=== PATIENT | female | born 1935 | race Asian ===

== ENCOUNTER 2021-01-06 01:03 | Outpatient (CLI) | payer MEDICARE, OTHER | END 2021-01-06 01:04 | disposition EMS.NT | LOC: EMS 01:03 | DX: Z03.89 Encounter for observation for other suspected diseases and conditions ruled out (principal) ==

== ENCOUNTER 2022-03-21 14:19 | Outpatient (CLI) | payer MEDICARE, OTHER | END 2022-03-21 14:20 | disposition critical access hospital (66) | LOC: EMS 14:19 | DX: R06.09 Other forms of dyspnea (principal); R06.01 Orthopnea; I50.9 Heart failure, unspecified | CPT/HCPCS: A0425; A0429 ==

== ENCOUNTER 2022-03-21 14:42 | Inpatient (IN) | payer MEDICARE, OTHER ==
[2022-03-21] MEDS ORDERED: IPRATROPIUM/ALBUTEROL 3 ML NEB INH STA (14:55)
--- NOTE | 2022-03-21 15:07 | ED Physician Documentation ---
History of Present Illness - Stated complaint Stated Complaint: DIFFICULTY BREATHING - Additonal information Additional information: 86-year-old female presents to the emergency department for evaluation of 10 days [place] and shortness of air. Her daughter reports that she herself had caught the "crud" and then her mom got sick. Reportedly the patient was seen at [facility] about a week ago On 12 March and was started on Lasix due to extensive lower extremity edema and suspicion that she had congestive heart failure. The patient is in the process of being referred to cardiology and reportedly has an echo scheduled for April 01. Patient has significant bilateral lower extremity edema which she reports has improved over the last 10 days due to the Lasix. Her daughter reports she is lost about 25 pounds. Patient denies chest pain. Patient was seen in this emergency department in August and diagnosed with atrial fibrillation as well as thrombocytopenia. She had good rate control with metoprolol. She did follow-up with her primary doctors at [facility] but no echocardiogram was ordered or completed reportedly Patient has a history of morbid obesity and atrial fibrillation. She is not anticoagulated. She does have a history of thrombocytopenia. Meds: Metoprolol 25 daily, Lasix 60 mg daily, celecoxib Review of Systems Constitutional: denies: Fever, Chills Eyes: reports: Reviewed and negative Cardiac: reports: Pedal edema. denies: Chest pain / pressure, Palpitations Respiratory: reports: Dyspnea, Cough GI: reports: Reviewed and negative : reports: Reviewed and negative Skin: reports: Reviewed and negative PD PAST MEDICAL HISTORY - Past Surgical History Past Surgical History: No - Present Medications Home Medications: Ambulatory Orders Medication Instructions Recorded Confirmed Metoprolol Succinate [Toprol Xl] 25 mg PO DAILY #30 tablet 08/28/21 03/21/22 Celecoxib [Celebrex] 50 mg PO DAILY 03/21/22 03/21/22 Furosemide [Lasix] 60 mg PO DAILY 03/21/22 03/21/22 - Allergies Allergies/Adverse Reactions: Allergies Allergy/AdvReac Type Severity Reaction Status Date / Time codeine Allergy Emesis Verified 03/21/22 15:12 Opioids - Morphine Analogues Allergy Emesis Verified 03/21/22 15:12 Opioids-Meperidine and Allergy Emesis Verified 03/21/22 15:12 Related Opioids-Methadone and Related Allergy Emesis Verified 03/21/22 15:12 gabapentin AdvReac Unknown Verified 03/21/22 15:12 - Social History Does the pt drink ETOH?: Yes PD ED PE NORMAL - General General: Alert and oriented X 3, Well developed/nourished (Morbidly obese). No: No acute distress (Patient denies chest pain) - HEENT HEENT: Pharynx benign. No: Moist mucous membranes (Dry mucous membranes) - Neck Neck: Supple, no meningeal sign, No adenopathy - Cardiac Cardiac: No murmur (Large 3/6 systolic murmur), Strong equal pulses. No: RRR (Irregular) - Respiratory Respiratory: No: No respiratory distress (Dyspneic. Speaking in 4-5 word sentences only. Room air sats are 88%. Saturations rise to 97% with 2 L nasal cannula. Diffuse expiratory wheeze.) - Abdomen Abdomen: Normal bowel sounds, Soft - Back Back: No CVA TTP, No spinal TTP - Derm Derm: Normal color, Warm and dry, No rash - Extremities Extremities: No deformity, No tenderness to palpate, Normal ROM s pain. No: No edema (Severe anasarca bilateral lower extremities) - Neuro Neuro: Alert and oriented X 3, cattery operator 2-12 intact Eye Opening: Spontaneous Motor: Obeys Commands Verbal: Oriented GCS Score: 15 Results - Vitals Vitals: Vital Signs - 24 hr 03/21/22 03/21/22 03/21/22 15:08 15:09 15:12 Heart Rate 86 88 Respiratory 20 16 Rate Blood Pressure 179/105 H O2 Saturation 97 88 L 99 If not protocol 2 : Oxygen Flow, liters/minute 03/21/22 03/21/22 15:15 15:28 Heart Rate Respiratory Rate Blood Pressure O2 Saturation 89 L 97 If not protocol 2 : Oxygen Flow, liters/minute Oxygen O2 Source Nasal cannula - EKG (time done) 1538 Rate: Rate (enter#) (84) Rhythm: Atrial fibrillation Intervals: No: Prolonged QT QRS: Low voltage Ischemia: Normal ST segments Compare to prior EKG: Unchanged from prior EKG Computer interpretation: Agree with computer - Labs Labs: Laboratory Tests 03/21/22 03/21/22 03/21/22 14:58 14:58 14:58 WBC 4.6 L RBC 4.09 L Hgb 12.8 Hct 42.2 MCV 103.2 H MCH 31.3 H MCHC 30.3 L RDW 15.5 H Plt Count 17 L* Neut # (Auto) Not Reportable Lymph # (Auto) Not Reportable [place] # (Auto) Not Reportable Eos # (Auto) Not Reportable Baso # (Auto) Not Reportable Absolute Nucleated RBC Not Reportable Total Counted 100 Band Neuts % (Manual) 0 Reactive Lymphs % (Man) 5 Abnorm Lymph % (Manual) 0 Nucleated RBC % Not Reportable Neutrophils # (Manual) 3.7 Lymphocytes # (Manual) 0.6 L Monocytes # (Manual) 0.3 Eosinophils # (Manual) 0.0 Basophils # (Manual) 0.0 Nucleated RBCs 1 Differential Comment MANUAL DIFFERENTIAL Platelet Estimate DECREASED (<130,000) Platelet Morphology 1+ GIANT PLATELETS RBC Morph Micro Appear 1+ MACROCYTOSIS Sodium 139 Potassium 3.7 Chloride 99 L Carbon Dioxide 31 Anion Gap 9.0 BUN 27 H Creatinine 1.2 H Estimated GFR (MDRD) 43 L Glucose 116 H Calcium 10.3 Total Bilirubin 2.1 H AST 40 ALT 20 Alkaline Phosphatase 71 Troponin I High Sens B-Natriuretic Peptide 350 H Total Protein 7.4 Albumin 4.2 Globulin 3.2 Albumin/Globulin Ratio 1.3 Lipase 47 03/21/22 16:06 WBC RBC Hgb Hct MCV MCH MCHC RDW Plt Count Neut # (Auto) Lymph # (Auto) [place] # (Auto) Eos # (Auto) Baso # (Auto) Absolute Nucleated RBC Total Counted Band Neuts % (Manual) Reactive Lymphs % (Man) Abnorm Lymph % (Manual) Nucleated RBC % Neutrophils # (Manual) Lymphocytes # (Manual) Monocytes # (Manual) Eosinophils # (Manual) Basophils # (Manual) Nucleated RBCs Differential Comment Platelet Estimate Platelet Morphology RBC Morph Micro Appear Sodium Potassium Chloride Carbon Dioxide Anion Gap BUN Creatinine Estimated GFR (MDRD) Glucose Calcium Total Bilirubin AST ALT Alkaline Phosphatase Troponin I High Sens 36.9 H* B-Natriuretic Peptide Total Protein Albumin Globulin Albumin/Globulin Ratio Lipase - Rads (name of study) cxr Radiology: Final report received (Moderate cardiomegaly and generalized interstitial prominence. CHF is suspected. Mild opacities are seen at lung bases which may represent atelectasis or mild early infiltrate) PD Medical Decision Making - ED course Complexity details: reviewed old records, reviewed results, re-evaluated patient, considered differential, d/w patient ED course: 86-year-old female presents to the emergency department for 10 days of dyspnea orthopnea. She does have a history of atrial fibrillation diagnosed in August. At that time she was thrombocytopenic and because of this no anticoagulation was started. She has had good rate control with metoprolol long-acting 25 mg daily. However she never followed through with echocardiogram or cardiology. She began having increasing dyspnea cough and shortness of air about 10 days ago. She did go to [facility] and they had suspicion that she had developed heart failure so she was started on Lasix daily. She is currently scheduled to have an echocardiogram completed on April 01 but due to worsening dyspnea and now hypoxia she was brought into the emergency department today. On room air her saturations are 87 to 88%. She is speaking in 4 word sentences. She does have diffuse wheeze. We did place her on 2 L nasal cannula with resultant rise in saturations to 97%. Chest x-ray shows cardiomegaly with suspected CHF. There may be some faint bibasilar infiltrates in the lower lung prajapati. Because of this I elected to start her on azithromycin and ceftriaxone for a possible community-acquired pneumonia in the setting of CHF. I did obtain a CBC that showed no leukocytosis. She has no anemia. She does have persistent and marked thrombocytopenia with a platelet count of 17,000. However this is essentially unchanged from her August value of 29,000. Her electrolytes were evaluated. She does have a mild BUN and creatinine elevation likely reflecting current Lasix administration. Her BNP was mildly elevated at 350 but given her morbid obesity this is likely falsely low. EKG today showed rate controlled atrial fibrillation without findings suggesting ischemia. Unfortunately there are no beds available for admission here at [facility] therefore she will board in the emergency department till bed is available. She was administered 80 mg of Lasix IV here in the ER and will be started on 60 mg orally daily. She will also remain on the azithromycin and ceftriaxone. I did briefly discussed this case with our daytime hospitalist Dr. Medina. She requested a single troponin. If elevated she would like another one just to trend. She is aware of this patient and tomorrow when a bed becomes available if the patient has not significantly improved she will be formally admitted. 1700: I been notified that a bed has become available on the wards and the patient will be transferred to floor bed #[id number]. I have spoke with Dr. Medina and further care to be dictated by the inpatient hospitalist team. Patient and her daughter are also aware. Departure - Departure Disposition: ED Place in Observation Clinical Impression: Hypoxia, Thrombocytopenia Acute exacerbation of CHF (congestive heart failure) Qualifiers: Heart failure type: unspecified Qualified Code(s): I50.9 - Heart failure, unspecified Pneumonia Qualifiers: Pneumonia type: due to unspecified organism Laterality: bilateral Lung location: lower lobe of lung Qualified Code(s): J18.9 - Pneumonia, unspecified organism Condition: Serious
[2022-03-21 15:08] LABS: BASOPHILS % (AUTO) 0.2 %; EOSINOPHILS % (AUTO) 0.2 %; HCT - HEMATOCRIT 42.2 % (37.0-47.0); HGB - HEMOGLOBIN 12.8 g/dL (12.0-16.0); LYMPHOCYTES % (AUTO) 13.4 %; MEAN CORPUSCULAR HEMOGLOBIN 31.3 pg (27.0-31.0); MEAN CORPUSCULAR HGB CONC 30.3 g/dL (32.0-36.0); MEAN CORPUSCULAR VOLUME 103.2 fL (81.0-99.0); MONOCYTES % (AUTO) 8.6 %; NEUTROPHILS % (AUTO) 76.9 %; RED BLOOD COUNT 4.09 10^6/uL (4.20-5.40); RED CELL DISTRIBUTION WIDTH 15.5 % (12.0-15.0); WHITE BLOOD COUNT 4.6 x10^3/uL (4.8-10.8)
--- NOTE | 2022-03-21 15:09 | XRAY Report ---
PROCEDURE: Chest 1 View X-Ray INDICATIONS: Chest Pain TECHNIQUE: One view of the chest was acquired. COMPARISON: 09/27/2021 FINDINGS: Surgical changes and devices: None. Lungs and pleura: Lung volumes can be seen, with mild opacities at the lung bases. More generalized interstitial prominence can be seen. Mediastinum: Mediastinal contours appear normal. Heart size is mildly enlarged. Bones and chest wall: No suspicious bony lesions. Age-appropriate degenerative changes are seen. Overlying soft tissues appear unremarkable. IMPRESSION: Moderate cardiomegaly with generalized interstitial prominence. CHF is suspected. Mild opacities are seen at the lung bases, which may represent atelectasis or mild/early infiltrate. Reviewed by: John Hines MD on 03/21/2022 2:08 PM [facility] Approved by: John Hines MD on 03/21/2022 2:08 PM [facility] Station ID: [id number]
[2022-03-21 15:13] LABS: PLT - PLATELET COUNT 17 10^3/uL (130-450)
[2022-03-21 15:14] LABS: ABNORMAL LYMPHS % (MANUAL) 0 %; BAND NEUTROPHILS % (MANUAL) 0 %
[2022-03-21 15:18] LABS: ALBUMIN 4.2 g/dL (3.2-5.5); ALBUMIN/GLOBULIN RATIO 1.3 (1.0-2.2); BILIRUBIN,TOTAL 2.1 mg/dL (0.2-1.0); CALCIUM 10.3 mg/dL (8.5-10.3); CREATININE 1.2 mg/dL (0.4-1.0); POTASSIUM 3.7 mmol/L (3.5-5.0); TOTAL PROTEIN 7.4 g/dL (6.7-8.2)
[2022-03-21 15:31] LABS: LYMPHOCYTES # (MANUAL) 0.6 10^3/uL (1.5-3.5); LYMPHOCYTES % (MANUAL) 9 %; MONOCYTES # (MANUAL) 0.3 10^3/uL (0.0-1.0); NEUTROPHILS # (MANUAL) 3.7 10^3/uL (1.5-6.6); NUCLEATED RBC (MANUAL) 1 %; RBC MORPHOLOGY (MULTIPLE) 1+ MACROCYTOSIS (NORMAL); REACTIVE LYMPHS % (MANUAL) 5 %
[2022-03-21 15:32] LABS: PLATELET ESTIMATE, MANUAL DECREASED (<130,000) (NORMAL); PLATELET MORPHOLOGY 1+ GIANT PLATELETS (NORMAL)
[2022-03-21 15:33] LABS: DIFFERENTIAL COMMENT MANUAL DIFFERENTIAL
[2022-03-21] MEDS ORDERED: FUROSEMIDE 40 MG/4 ML VIAL IVP STA (15:39)
[2022-03-21] MEDS ORDERED: cefTRIAXone 1 GM VIAL IVP STA (15:51)
[2022-03-21] MEDS ORDERED: AZITHROMYCIN INJ 500 MG in SODIUM CHLORIDE 0.9% 250 ML IV STA (15:51)
[2022-03-21] MEDS ORDERED: ACETAMINOPHEN 325 MG TABLET PO PRN (16:52)
[2022-03-21] MEDS ORDERED: ONDANSETRON 4 MG/2 ML VIAL IVP PRN (16:52)
[2022-03-21] MEDS: SODIUM CHLORIDE FLUSH 0.9% 10 ML SYRINGE IVP SCH (17:00)
--- NOTE | 2022-03-21 17:13 | HISTORY & PHYSICAL EXAMINATION ---
Chief Complaint - Chief Complaint Chief Complaint: Shortness of breath History of Present Illness - Admitted From Admitted From:: ED - History Obtained From History obtained from: ED provider and the patient - History of Present Illness HPI Comment/Other: This is an 86-year-old white female with possibly a history of hypertension. She was sent to the ER in August 2021 when at a clinic visit she was found to be in new onset of A. fib. She was asymptomatic with this, had no palpitations, chest pain, dyspnea or edema. She was started on metoprolol. Labs then showed she had thrombocytopenia with a platelet count of 29, therefore no anticoagulants or antiplatelets were started. She was told to get follow-up and that she needs an echo. She apparently did not have an echo ordered. Approximately 10 days ago she started to develop a URI along with her daughter with whom she lives. She had a cough, shortness of breath, no appetite and malaise. Because of the shortness of breath she went to her provider who felt that she was in heart failure because of shortness of breath and leg edema. She was started on Lasix 60 mg daily. With this she has had good diuresis and lost 25 pounds over the 6 days. Her shortness of breath however, has not improved and she presented to the ER today. She was desaturating on room air with an O2 sat of 88%, which improved on 2 L supplemental O2 via n.c. Wheezing was heard and she was ordered to get a nebulizer treatment. Chest x-ray showed volume overload and possible early bilateral infiltrates. She received a dose of Lasix 80 mg IV and was ordered to get Zithromax and Ceftriaxone. Her troponin is 36, BNP 350, and BUN/creat 27/1.2 which are elevated compared to August 2021, when it was 22/1.0. Her WBC is 4.6 and her entire respiratory panel is still pending. Given her new need for supplemental oxygen, the ED provider reached out to the Hospitalist team and we discussed the need to give further treatment for this la dy. She will be placed in Observation for management of a possible CHF exacerbation and possible pneumonia, causing hypoxia. History - Past Medical History Cardiovascular: reports: Congestive heart failure (presumed) Respiratory: reports: None Neuro: reports: None Endocrine/Autoimmune: reports: None GI: reports: None VALVE MAKER: reports: None : reports: None HEENT: reports: Chronic vision loss Psych: reports: None Musculoskeletal: reports: None Derm: reports: None - Past Surgical History General: reports: Appendectomy - Family & Social History Family History: Mother: , Father: Family History Comment/Other: No diseases run in the family Living arrangement: At home Living Situation: With family Social History Notes: She lives with her and her daughter. She quit smoking 40 years ago. She drinks 1 alcoholic drink about 5-6 times per week. - Substance History Use: Uses substance without health or social issues: NONE - POLST Patient has POLST: No Meds/Allgy - Home Medications Home Medications: Ambulatory Orders Medication Instructions Recorded Confirmed Metoprolol Succinate [Toprol Xl] 25 mg PO DAILY #30 tablet 08/28/21 03/21/22 Celecoxib [Celebrex] 50 mg PO DAILY 03/21/22 03/21/22 Furosemide [Lasix] 60 mg PO DAILY 03/21/22 03/21/22 - Allergies Allergies/Adverse Reactions: Allergies Allergy/AdvReac Type Severity Reaction Status Date / Time codeine Allergy Emesis Verified 03/21/22 15:12 Opioids - Morphine Analogues Allergy Emesis Verified 03/21/22 15:12 Opioids-Meperidine and Allergy Emesis Verified 03/21/22 15:12 Related Opioids-Methadone and Related Allergy Emesis Verified 03/21/22 15:12 gabapentin AdvReac Unknown Verified 03/21/22 15:12 Review of Systems - Constitutional Constitutional: reports: Poor appetite, Weight loss - Cardiovascular Cariovascular: reports: Edema - Respiratory Respiratory: reports: Cough, Sputum production, SOB at rest, SOB with exertion - All Other Systems All Other Systems: reports: Reviewed and negative Exam - Vital Signs Vital Signs: Vital Signs x48h Pulse Resp BP Pulse Ox O2 Flow Rate 03/21/22 15:28 97 2 03/21/22 15:15 89 L 03/21/22 15:12 88 16 99 2 03/21/22 15:09 88 L 03/21/22 15:08 86 20 179/105 H 97 - Physical Exam General Appearance: positive: No acute distress, Alert Eyes Bilateral: positive: Other (Eyes have exophthalmous.) ENT: positive: ENT inspection nml, No signs of dehydration Neck: positive: Nml inspection (O), Other (Cannot evaluate JVP due to morbid obesity) Respiratory: positive: No respiratory distress (wearing O2 per n.c.), Other (diminished (or distant) breath sounds) Cardiovascular: positive: No murmur (Distant heartb sounds due to morbid obesity, large breasts) Abdomen: positive: Non-tender, Other (Obese with a pannus) Extremities: positive: Other (1+ edema to thighs, very obese legs. Multiple very large ecchymoses of both upper extremitoes) Conclusion/Plan - Problem List (1) Acute respiratory failure with hypoxia Conclusion/Plan: She has documented saturation of 80% on room air, this improved with supplemental oxygen Plan: We will treat the underlying presumed causes which may be CHF and PNA Cont suppl O2, target sats are 90%. (2) CHF (congestive heart failure) Conclusion/Plan: She has not had the Echo to establish what her LVEF is. Perhaps untreated HTN or RVR put her into CHF Plan: Will continue with IV BID diuretics Follow I's and O's, daily weights Follow BMP and magnesium Continue with her beta-lanie Adjust meds for BP control air sampling and monitoring Obtain an Echo Low-salt diet (3) Pneumonia Conclusion/Plan: Chest x-ray shows infiltrates and her clinical presentation is that of upper respiratory infection for several weeks making pneumonia a strong possibility Plan: Will obtain sputum culture and send off if she makes sputum We will continue with empiric antibiotics of p.o. Zithromax and IV ceftriaxone Qualifiers: Pneumonia type: due to unspecified organism Laterality: bilateral Lung location: lower lobe of lung Qualified Code(s): J18.9 - Pneumonia, unspecified organism (4) Malignant essential hypertension Conclusion/Plan: Her first 2 blood pressures were 140-170/90-100 but the BPs latest were 211/133. Possibly poorly controlled HTN put her into CHF. Plan: Start IV diuretics twice daily. Continue with her home dose of metoprolol. Will also add hydralazine and nitrates, not QING, while the creat is not normal. Low-salt diet (5) Afib Conclusion/Plan: Her ER August 2021 visit showed A. fib and this current ER visits EKG shows A. fib. Unknown if she has had any work-up for this since the August ER visit, but it sounds like no referral to Cardiology was made yet. An Echo has not been done yet, as far as we can tell. Plan: Check TSH to rule out hyperthyroidism Check troponins to rule out coronary ischemia Placed on telemetry to rule out tachycardia induced cardiomyopathy and RVR Continue with her home dose of beta-lanie She cannot get antiplatelet or anticoagulant agents because of her thrombocytopenia (6) ATIF (acute kidney injury) Conclusion/Plan: Etiology of this may be prerenal azotemia from 2 weeks of diuretic use, or this may be cardiorenal syndrome from high venous pressure given her CHF, or it may be intrinsic renal disease given her malignant hypertension. Plan: Avoid nephrotoxins Will continue using Lasix but closely monitor what the creatinine does (7) Thrombocytopenia Conclusion/Plan: This was documented about 6 months ago, platelet count of 29. She was told to get follow-up for this but did not go to the appointment in [place].. Platelet count today is 17. She has very prominent ecchymoses of both arms. Plan: She cannot get antiplatelet or anticoagulants since she is at risk of bleeding with such low platelets. Follow CBC daily, if plt <10, would order a plt transfusion (8) Morbid obesity with BMI of 40.0-44.9, adult Conclusion/Plan: As per Hx. Plan: Will need nutrition consult. - Lab Results Fish Bones: 03/21/22 14:58 03/21/22 14:58 - Diagnostic Imaging Results Diagnostic Imaging Results: positive: Final report reviewed
[2022-03-21] MEDS ORDERED: hydrALAZINE INJ 20 MG/ML VIAL IVP STA (17:45)
[2022-03-21 20:09] LABS: B. PARAPERTUSSIS- RESP PCR PAN NOT DETECTED; B. PERTUSSIS- RESP PCR PANEL NOT DETECTED; C. PNEUMONIAE- RESP PCR PANEL NOT DETECTED; CORONAVIRUS 229E-RESP PCR NOT DETECTED; CORONAVIRUS HKU1-RESP PCR NOT DETECTED; CORONAVIRUS NL63-RESP PCR NOT DETECTED; CORONAVIRUS OC43-RESP PCR NOT DETECTED; HUMAN METAPNEUMOVIRUS NOT DETECTED; INFLUENZA A H1 2009- RESP PCR DETECTED; INFLUENZA B - RESP PCR PANEL NOT DETECTED; M. PNEUMONIAE- RESP PCR PANEL NOT DETECTED; PARAINFLUENZA VIRUS 1 NOT DETECTED; PARAINFLUENZA VIRUS 2 NOT DETECTED; PARAINFLUENZA VIRUS 3 NOT DETECTED; PARAINFLUENZA VIRUS 4 NOT DETECTED; RHINOVIRUS/ENTEROVIRUS NOT DETECTED; RSV- RESP PCR PANEL NOT DETECTED; SARS-CoV-2 -RESP PCR PANEL NOT DETECTED
[2022-03-21] MEDS: hydrALAZINE 25 MG TABLET PO SCH (22:56)
[2022-03-22] MEDS: SODIUM CHLORIDE FLUSH 0.9% 10 ML SYRINGE IVP SCH ×3 (05:18→16:15)
[2022-03-22] MEDS: hydrALAZINE 25 MG TABLET PO SCH (05:18)
[2022-03-22] MEDS: FUROSEMIDE 40 MG/4 ML VIAL IVP SCH ×2 (05:18→14:43)
[2022-03-22 06:58] LABS: BASOPHILS % (AUTO) 0.2 %; EOSINOPHILS % (AUTO) 0.4 %; HCT - HEMATOCRIT 39.7 % (37.0-47.0); HGB - HEMOGLOBIN 12.3 g/dL (12.0-16.0); LYMPHOCYTES # (AUTO) 0.7 10^3/uL (1.5-3.5); LYMPHOCYTES % (AUTO) 12.2 %; MEAN CORPUSCULAR HEMOGLOBIN 31.7 pg (27.0-31.0); MEAN CORPUSCULAR VOLUME 102.3 fL (81.0-99.0); MONOCYTES # (AUTO) 0.4 10^3/uL (0.0-1.0); MONOCYTES % (AUTO) 6.7 %; NEUTROPHILS # (AUTO) 4.3 10^3/uL (1.5-6.6); NEUTROPHILS % (AUTO) 79.9 %; RED BLOOD COUNT 3.88 10^6/uL (4.20-5.40); RED CELL DISTRIBUTION WIDTH 15.6 % (12.0-15.0); WHITE BLOOD COUNT 5.4 x10^3/uL (4.8-10.8)
[2022-03-22 07:03] LABS: PLT - PLATELET COUNT 25 10^3/uL (130-450); SLIDE REVIEW? Indicated
[2022-03-22 07:07] LABS: CALCIUM 10.1 mg/dL (8.5-10.3); CREATININE 1.1 mg/dL (0.4-1.0); POTASSIUM 3.5 mmol/L (3.5-5.0)
[2022-03-22 07:48] LABS: PLATELET ESTIMATE, MANUAL DECREASED (<130,000) (NORMAL); PLATELET MORPHOLOGY NORMAL APPEARANCE (NORMAL); RBC MORPHOLOGY (MULTIPLE) NORMAL APPEARANCE (NORMAL)
[2022-03-22] MEDS: ISOSORBIDE MONONITRATE ER 30 MG TABLET PO SCH (08:11)
[2022-03-22] MEDS: METOPROLOL SUCCINATE 25 MG TABLET PO SCH (08:11)
[2022-03-22] MEDS ORDERED: FUROSEMIDE 20 MG TABLET PO SCH (09:00)
[2022-03-22] MEDS ORDERED: cefTRIAXone 1 GM VIAL IVP SCH (09:00)
[2022-03-22] MEDS ORDERED: AZITHROMYCIN 250 MG TABLET PO SCH (09:00)
--- NOTE | 2022-03-22 12:26 | PROVIDER PROGRESS NOTE ---
Assessment/Plan - Problem List (1) Acute respiratory failure with hypoxia Assessment/Plan: Despite treatment, she had a documented saturation of 87% on room air today. She is tachypneic when being moved in bed. Has not gotten OOB yet. Plan: Admit to Inpt status due to continued hypoxia We will treat the underlying presumed causes which appear to be CHF and PNA Cont suppl O2, target sats are 90%. (2) CHF (congestive heart failure) Conclusion/Plan: She was advised to see Cardiology when she came into ER in [facility], in August 2021. She never went to see a [facility] and also has not had the Echo that was advised then. Echo has just recently been set up to be done 04/01/22. Thus we don not know her LVEF yet. She has been on metoprolol as her only med, for 6 mos. When in ER yesterday, her BP was as high as 230/130. Perhaps untreated HTN or RVR of Afib, or the stress of this pneumonia, put her into CHF. Troponin ruled her out for NH. Plan: Continue telemetry monitoring as an Inpt Will continue with IV BID diuretics Follow I's and O's, daily weights Follow BMP and magnesium We added meds for BP control Continue with her beta-lanie. Meds will be adjusted based on her LVEF Obtain an Echo (today is Mon, and we have no Echo service except -). Low-salt diet (3) Pneumonia Conclusion/Plan: Chest x-ray shows infiltrates and her clinical presentation is that of upper respiratory infection for 10 days, making pneumonia a strong possibility as causing the hypoxia Plan: Will obtain sputum culture and send off if she makes sputum We will continue with empiric antibiotics of p.o. Zithromax and IV ceftriaxone Qualifiers: Pneumonia type: due to unspecified organism Laterality: bilateral Lung location: lower lobe of lung Qualified Code(s): J18.9 - Pneumonia, unspecified organism (4) Influenza A infection Plan: start Tamiflu. Resp isolation. (5) Malignant essential hypertension Conclusion/Plan: In the ER yesterday, her first 2 blood pressures were 140-170/90-100, then 211/133. Possibly poorly controlled HTN put her into CHF. Plan: Continue IV diuretics twice daily. Continue with her home dose of metoprolol. Will also add hydralazine and nitrates. BP was exessively low at 103 systolic today, so will decrease the Hydralazine dose. Low-salt diet (6) Afib Conclusion/Plan: Her ER August 2021 visit showed A. fib and this current ER visits EKG shows A. fib. It does not appear that she has had any work-up for this since the August ER visit. The referral to Cardiology was made but she has not gone yet. An Echo is scheduuled for 04/01/22. We checked TSH to rule out hyperthyroidism>> TSH is low normal at 0.91. Troponins ruled her out for NH. Plan: Continue on telemetry to rule out tachycardia induced cardiomyopathy from RVR Continue with her home dose of beta-lanie She cannot get antiplatelet or anticoagulant agents because of her thrombocytopenia and Hx of excessive bruising (7) ATIF (acute kidney injury) Conclusion/Plan: Etiology of this appears to be cardiorenal syndrome, from high venous pressure, given her CHF, or it may be intrinsic renal disease given her malignant hypertension. With iv diuretics, her creat has improved. Plan: Avoid nephrotoxins Will continue using Lasix Follow BMP daily (8) Thrombocytopenia Conclusion/Plan: This was documented about 6 months ago, platelet count of 29. She was told to get follow-up for this but did not go to the appointment in [place].. Platelet count at admission was 17. She has very prominent ecchymoses of both arms. The daughter, in her room today, described that the patient has had bruising for all her life and other family members have bruising. The pt has never been to a [facility] even though it was recommended, when the platelets were documented low at the August 2021 ER visit. Apparently there was a referral made to Hematology but the patient did not go to the appointment. Plan: She cannot get antiplatelet or anticoagulants since she is at risk of bleeding with such low platelets. Follow CBC daily, if plt <10, would order a plt transfusion (9) Morbid obesity with BMI of 40.0-44.9, adult Conclusion/Plan: As per Hx. Plan: Will need nutrition consult. Will order OOB to chair for all meals Will start PT and OT rehab soon, to prevent deconditioning (10) Non-compliance with medical management Conclusion/Plan: During my visit in her room today, the entire family was in the room: Her , 2 daughters and 1 other person. It was revealed that this patient has not seen a doctor in decades. The visit 10 days ago where she was started on Lasix was preceded by an ER visit 6 months ago and before that she only had visits for shingles about 2 years ago. The daughters described that the patient has had bruising for all her life and other family members have bruising. She has never been to a [facility] even though it was recommended when the platelets were documented low, at the August 2021 ER visit. Apparently there was a referral made to Hematology but the patient did not go to the appointment. We also knew yesterday that she did not go to the Cardiology appointment, advised in 2021, until this month, which was 6 months after that A. fib was found. The daughters tell me that the reason she does not go to medical providers is because she thinks they will "just tell her that she is fat". Thus she has not been on prescription medications of any kind for decades, until August of this year, when Metoprolol was started and then 10 days ago, when Lasix was started. Plan: We will request a social work consult regarding her fear of seeing doctors. - Current Meds Current Meds: Current Medications Generic Name Dose Route Start Last Admin Trade Name Althea PRN Reason Stop Dose Admin Furosemide 40 mg 03/22/22 06:00 03/22/22 05:18 Furosemide 40 Mg/4 Ml Vial IVP 40 mg BIDDIURETIC CUONG Administration Isosorbide Mononitrate 30 mg 03/22/22 09:00 03/22/22 08:11 Isosorbide Mononitrate Er 30 Mg Tablet PO 30 mg DAILY CUONG Administration Metoprolol Succinate 25 mg 03/22/22 09:00 03/22/22 08:11 Metoprolol Succinate 25 Mg Tablet PO 25 mg DAILY CUONG Administration Sodium Chloride 10 ml 03/21/22 17:00 03/22/22 11:32 Sodium Chloride Flush 0.9% 10 Ml Syringe IVP 10 ml 0100,0900,1700 CUONG Administration - Lab Result Fish Bone Diagrams: 03/22/22 06:43 03/22/22 06:43 - Additional Planning My Orders: My Active Orders 03/21/22 Dinner DIET [Low Sodium Diet] [DIET] 03/21/22 16:52 Oxygen Therapy [RC] Q12H Telemetry (24 Hour) [RC] Q4HR Vital Signs [RC] Q4HR Acetaminophen [Tylenol] 650 mg PO Q4HR PRN Ondansetron Inj [Zofran Inj] 4 mg IVP Q6HR PRN Sodium Chloride Flush 0.9% [Normal Saline Flush 0.9%] 10 ml IVP PRN PRN 03/21/22 16:53 Activity Orders [RC] Q2HR IO [RC] IOSHIFT Initiate Bowel Care Protocol [RC] .protocol Initiate Line Care Protocol [RC] QSHIFT Initiate Personal Care Protoco [RC] .protocol Code Status [OTHERS] Routine Condition of Patient [OTHERS] Routine DVT Prophylaxis [OTHERS] Routine 03/21/22 16:54 Daily Weight [RC] 0600 IV Insert [RC] .ONCE 03/21/22 16:55 Initiate Line Care Protocol [RC] QSHIFT SCDs [RC] QSHIFT 03/21/22 17:00 Sodium Chloride Flush 0.9% [Normal Saline Flush 0.9%] 10 ml IVP 0100,0900,1700 03/22/22 06:00 FUROSEMIDE INJ 40mg VIAL [LASIX INJ 40 mg VIAL] 40 mg IVP BIDDIURETIC 03/22/22 09:00 Isosorbide Mononitrate ER [Imdur] 30 mg PO DAILY Metoprolol Succinate [Toprol Xl] 25 mg PO DAILY 03/22/22 11:16 Miscellaenous Nursing Order [RC] QSHIFT 03/22/22 12:09 Admit [Admit \\ Transfer \\ Status] [RC] .ONCE 03/22/22 14:00 hydrALAZINE [Apresoline] 10 mg PO TID 03/23/22 07:00 Echo Transthoracic Complete [ECHO] Routine Subjective - Subjective Patient Reports: Feeling Better, Other ( and 2 daughters are in the room and tell me that she sounds better than over the last 10 days at home, when she was coughing, short of breath at rest, , had no appetite, & had vomiting) Objective Vital Signs: Vital Signs - 24 hr 03/21/22 03/21/22 03/21/22 15:08 15:09 15:12 Temperature Heart Rate 86 88 Heart Rate [ Brachial] Respiratory 20 16 Rate Blood Pressure 179/105 H Blood Pressure [Right Brachial artery] O2 Saturation 97 88 L 99 If not protocol 2 : Oxygen Flow, liters/minute 03/21/22 03/21/22 03/21/22 15:15 15:28 17:00 Temperature Heart Rate 90 Heart Rate [ Brachial] Respiratory 20 Rate Blood Pressure 211/131 H Blood Pressure [Right Brachial artery] O2 Saturation 89 L 97 95 If not protocol 2 2 : Oxygen Flow, liters/minute 03/21/22 03/21/22 03/21/22 17:30 18:08 19:25 Temperature Heart Rate 87 Heart Rate [ 84 Brachial] Respiratory 26 H 16 Rate Blood Pressure 184/147 H Blood Pressure 156/96 H [Right Brachial artery] O2 Saturation 98 98 If not protocol 2 2 2 : Oxygen Flow, liters/minute 03/21/22 03/21/22 03/21/22 19:32 19:37 21:00 Temperature 37.1 C Heart Rate Heart Rate [ 79 81 91 Brachial] Respiratory 16 16 24 Rate Blood Pressure Blood Pressure 149/87 H 149/84 H 141/73 H [Right Brachial artery] O2 Saturation 100 98 98 If not protocol 2 2 2 : Oxygen Flow, liters/minute 03/21/22 03/21/22 03/22/22 22:58 23:43 05:09 Temperature 36.8 C 36.8 C Heart Rate Heart Rate [ 83 97 91 Brachial] Respiratory 16 16 16 Rate Blood Pressure Blood Pressure 145/88 H 126/64 127/65 [Right Brachial artery] O2 Saturation 93 16 L 95 If not protocol 2 2 2 : Oxygen Flow, liters/minute 03/22/22 03/22/22 03/22/22 07:35 11:00 11:11 Temperature 36.8 C 36.6 C Heart Rate Heart Rate [ 92 86 Brachial] Respiratory 26 H 24 19 Rate Blood Pressure Blood Pressure 133/54 H 103/51 L [Right Brachial artery] O2 Saturation 95 87 L 93 If not protocol 2 2 : Oxygen Flow, liters/minute Oxygen O2 Source Nasal cannula Oxygen Flow Rate 2 I&O (Last 24 Hrs): Intake and Output Totals x24h 03/20/22 03/21/22 03/22/22 23:59 23:59 23:59 Intake Total 136 Output Total 1005 300 Balance -1005 -164 General: Alert, Oriented x3 HEENT: Mucous membr. moist/pink, Other (cheeks are flushed) Neck: Other (Obese and cannot evaluate JVP) Neuro: Alert, Non Focal Cardiovascular: Regular rate (Distant heart sounds due to morbid obesity and large breasts) Respiratory: Wheezes, Rales (Scattered wheezes, bilateral basal rales) Abdomen: Soft, No tenderness, Other (Obese with pannus) Extremities: Other (1+ silver to thighs) - Results Results: Laboratory Results WBC 5.4 x10^3/uL (4.8-10.8) 03/22/22 06:43 RBC 3.88 10^6/uL (4.20-5.40) L 03/22/22 06:43 Hgb 12.3 g/dL (12.0-16.0) 03/22/22 06:43 Hct 39.7 % (37.0-47.0) 03/22/22 06:43 MCV 102.3 fL (81.0-99.0) H 03/22/22 06:43 MCH 31.7 pg (27.0-31.0) H 03/22/22 06:43 MCHC 31.0 g/dL (32.0-36.0) L 03/22/22 06:43 RDW 15.6 % (12.0-15.0) H 03/22/22 06:43 Plt Count 25 10^3/uL (130-450) L* 03/22/22 06:43 MPV TNP 03/22/22 06:43 Neut # (Auto) 4.3 10^3/uL (1.5-6.6) 03/22/22 06:43 Lymph # (Auto) 0.7 10^3/uL (1.5-3.5) L 03/22/22 06:43 [place] # (Auto) 0.4 10^3/uL (0.0-1.0) 03/22/22 06:43 Eos # (Auto) 0.0 10^3/uL (0.0-0.7) 03/22/22 06:43 Baso # (Auto) 0.0 10^3/uL (0.0-0.1) 03/22/22 06:43 Absolute Nucleated RBC 0.00 x10^3/uL 03/22/22 06:43 Total Counted 100 03/21/22 14:58 Band Neuts % (Manual) 0 % (0-10) 03/21/22 14:58 Reactive Lymphs % (Man) 5 % 03/21/22 14:58 Abnorm Lymph % (Manual) 0 % 03/21/22 14:58 Nucleated RBC % 0.0 /100WBC 03/22/22 06:43 Neutrophils # (Manual) 3.7 10^3/uL (1.5-6.6) 03/21/22 14:58 Lymphocytes # (Manual) 0.6 10^3/uL (1.5-3.5) L 03/21/22 14:58 Monocytes # (Manual) 0.3 10^3/uL (0.0-1.0) 03/21/22 14:58 Eosinophils # (Manual) 0.0 10^3/uL (0-0.7) 03/21/22 14:58 Basophils # (Manual) 0.0 10^3/uL (0-0.1) 03/21/22 14:58 Nucleated RBCs 1 % 03/21/22 14:58 Differential Comment MANUAL DIFFERENTIAL 03/21/22 14:58 Manual Slide Review Indicated 03/22/22 06:43 Platelet Estimate DECREASED (<130,000) (NORMAL) 03/22/22 06:43 Platelet Morphology NORMAL APPEARANCE (NORMAL) 03/22/22 06:43 RBC Morph Micro Appear NORMAL APPEARANCE (NORMAL) 03/22/22 06:43 Sodium 140 mmol/L (135-145) 03/22/22 06:43 Potassium 3.5 mmol/L (3.5-5.0) 03/22/22 06:43 Chloride 98 mmol/L (101-111) L 03/22/22 06:43 Carbon Dioxide 33 mmol/L (21-32) H 03/22/22 06:43 Anion Gap 9.0 (6-13) 03/22/22 06:43 BUN 23 mg/dL (6-20) H 03/22/22 06:43 Creatinine 1.1 mg/dL (0.4-1.0) H 03/22/22 06:43 Estimated GFR (MDRD) 47 (>89) L 03/22/22 06:43 Glucose 96 mg/dL (70-100) 03/22/22 06:43 Calcium 10.1 mg/dL (8.5-10.3) 03/22/22 06:43 Magnesium 2.0 mg/dL (1.7-2.8) 03/22/22 06:43 Total Bilirubin 2.1 mg/dL (0.2-1.0) H 03/21/22 14:58 AST 40 IU/L (10-42) 03/21/22 14:58 ALT 20 IU/L (10-60) 03/21/22 14:58 Alkaline Phosphatase 71 IU/L (42-121) 03/21/22 14:58 Troponin I High Sens 36.0 ng/L (2.3-14.8) H* 03/21/22 19:15 B-Natriuretic Peptide 226 pg/mL (5-100) H 03/22/22 06:43 Total Protein 7.4 g/dL (6.7-8.2) 03/21/22 14:58 Albumin 4.2 g/dL (3.2-5.5) 03/21/22 14:58 Globulin 3.2 g/dL (2.1-4.2) 03/21/22 14:58 Albumin/Globulin Ratio 1.3 (1.0-2.2) 03/21/22 14:58 Lipase 47 U/L (22-51) 03/21/22 14:58 TSH 0.91 uIU/mL (0.34-5.60) 03/22/22 06:43 Nasal Adenovirus (PCR) NOT DETECTED 03/21/22 15:13 Nasal B. parapertussis DNA (PCR) NOT DETECTED 03/21/22 15:13 Nasal Coronavir 229E PCR NOT DETECTED 03/21/22 15:13 Nasal Coronavir HKU1 PCR NOT DETECTED 03/21/22 15:13 Nasal Coronavir NL63 PCR NOT DETECTED 03/21/22 15:13 Nasal Coronavir OC43 PCR NOT DETECTED 03/21/22 15:13 Nasal Enterovir/Rhinovir PCR NOT DETECTED 03/21/22 15:13 Nasal Influ A H1 2009 PCR DETECTED A 03/21/22 15:13 Nasal Influenza B PCR NOT DETECTED 03/21/22 15:13 Nasal Parainfluen 1 PCR NOT DETECTED 03/21/22 15:13 Nasal Parainfluen 2 PCR NOT DETECTED 03/21/22 15:13 Nasal Parainfluen 3 PCR NOT DETECTED 03/21/22 15:13 Nasal Parainfluen 4 PCR NOT DETECTED 03/21/22 15:13 Nasal RSV (PCR) NOT DETECTED 03/21/22 15:13 Nasal B.pertussis DNA PCR NOT DETECTED 03/21/22 15:13 Nasal C.pneumoniae (PCR) NOT DETECTED 03/21/22 15:13 Dalton Human Metapneumo PCR NOT DETECTED 03/21/22 15:13 Nasal M.pneumoniae (PCR) NOT DETECTED 03/21/22 15:13 Nasal SARS-CoV-2 (PCR) NOT DETECTED 03/21/22 15:13
[2022-03-22] MEDS ORDERED: OSELTAMIVIR 75 MG CAPSULE PO ONE (14:00)
[2022-03-22] MEDS: hydrALAZINE 10 MG TABLET PO SCH ×2 (14:43→21:43)
[2022-03-23] MEDS: SODIUM CHLORIDE FLUSH 0.9% 10 ML SYRINGE IVP SCH ×3 (00:40→17:31)
[2022-03-23] MEDS: hydrALAZINE 10 MG TABLET PO SCH ×3 (07:02→21:20)
[2022-03-23] MEDS: FUROSEMIDE 40 MG/4 ML VIAL IVP SCH ×2 (07:02→14:16)
[2022-03-23] MEDS: OSELTAMIVIR 30 MG CAPSULE PO SCH ×2 (08:53→21:20)
[2022-03-23] MEDS: ISOSORBIDE MONONITRATE ER 30 MG TABLET PO SCH (08:53)
[2022-03-23] MEDS: AZITHROMYCIN 250 MG TABLET PO SCH (08:53)
[2022-03-23] MEDS: METOPROLOL SUCCINATE 25 MG TABLET PO SCH (08:53)
[2022-03-23] MEDS: cefTRIAXone 1 GM in SODIUM CHLORIDE 0.9% MINIBAG 100 ML IV SCH (08:53)
--- NOTE | 2022-03-23 15:57 | PROVIDER PROGRESS NOTE ---
Assessment/Plan - Problem List (1) Acute respiratory failure with hypoxia Assessment/Plan: She is still tachypneic with movement, was ordered to be OOB for all meals. Plan: We will treat the underlying presumed causes which appear to be diastolic CHF and PNA Cont suppl O2, target sats are 90%. (2) Pneumonia Conclusion/Plan: Chest x-ray shows infiltrates and her clinical presentation is that of upper respiratory infection for 10 days, making pneumonia a strong possibility as causing the hypoxia Plan: Will obtain sputum culture and send off if she makes sputum We will continue with empiric antibiotics of p.o. Zithromax and IV ceftriaxone Qualifiers: Pneumonia type: due to unspecified organism Laterality: bilateral Lung location: lower lobe of lung Qualified Code(s): J18.9 - Pneumonia, unspecified organism (3) Cor Pulmonale Impression: Her complete Echo with Doppler was done today and this shows normal LV size with preserved systolic function EF of 65% therefore likely diastolic heart failure but she has a very large RV with preserved RV contractility. The cause of the cor pulmonale could be the current pneumonia on top of (very likely) obesity hypoventilation syndrome. Plan: The Echo report will be given to the family so that she can take it to her cripple worker appointment which is in about 2 weeks Continue with careful diuresis (4) Acute on chronic diastolic heart failure (congestive heart failure) Conclusion/Plan: She was advised to see Cardiology when she came into ER in [facility], in August 2021. She never went to see a Tile Designer and also has not had the Echo that was advised then. Her complete Echo with Doppler was done today and this shows normal LV size with preserved systolic function EF of 65% therefore likely diastolic heart failure She has been on metoprolol as her only med, for 6 mos. When in ER at admission, her BP was as high as 230/130. Perhaps untreated HTN or RVR from Afib, or the stress of this pneumonia, put her into CHF. Troponin ruled her out for [place]. Plan: Continue telemetry monitoring Will continue with IV BID diuretics Follow I's and O's, daily weights Follow BMP and magnesium We added meds for BP control Continue with her beta-lanie. Low-salt diet (5) Influenza A infection Plan: We started her on Tamiflu. Resp isolation. (6) Malignant essential hypertension Conclusion/Plan: In the ER, her first 2 blood pressures were 140-170/90-100, then 211/133. Possibly poorly controlled HTN put her into CHF. Plan: Continue IV diuretics twice daily. Continue with her home dose of metoprolol. We also started hydralazine and nitrates. BP was exessively low at 103 systolic yesterday, so the Hydralazine dose was decreased. Low-salt diet (7) Afib Conclusion/Plan: Her ER August 2021 visit showed new onset A. fib and this current ER visits shows she is in A. fib. It does not appear that she has had any work-up for this since the August ER visit. The referral to Cardiology was made but she had not gone yet. An Echo was scheduled for 04/01/22. We checked TSH to rule out hyperthyroidism>> TSH is low normal at 0.91. Troponins ruled her out for [place]. Plan: Continue on telemetry to rule out tachycardia (Afib with RVR) Continue with her home dose of beta-lanie She cannot get antiplatelet or anticoagulant agents because of her thrombocytopenia and Hx of excessive bruising lifelong. (8) Cardiorenal syndrome Conclusion/Plan: Etiology of elevated BUN/creat appears to be cardiorenal syndrome, fcaused by high venous pressure, given her CHF, or it may be intrinsic renal disease given her malignant hypertension. With iv diuretics, her creat has improved. Plan: Avoid nephrotoxins Will continue using Lasix Follow BMP daily (9) Thrombocytopenia Conclusion/Plan: This was documented about 6 months ago, with a platelet count of 29. She was told to get follow-up for this but did not go to the appointment in [place].. Platelet count at admission now was 17. She has very large and extensive ecchymoses of both arms. Yesterday the nancy zepeda, in her room, described that the patient has had bruising for all her life and other family members have bruising. She has not had any lab work is decades, per the daughters, because she does not see a doctor regularly. The pt has never been to a Fairground Operator even though that was recommended when the platelets were documented low at the August 2021 ER visit. Apparently there was a referral made to Hematology but the patient did not go to the appointment. Plan: She cannot get antiplatelet or anticoagulants since she is at risk of bleeding with such low platelets. Follow CBC daily, if plt <10, would order a plt transfusion (10) Morbid obesity with BMI of 40.0-44.9, adult Conclusion/Plan: As per Hx. Plan: Will need nutrition consult. We ordered OOB to chair for all meals Will order PT and OT rehab to prevent deconditioning (11) Non-compliance with medical management Conclusion/Plan: During my visit in her room on 03/22, the entire family was in the room: Her , 2 daughters and 1 other person. It was revealed that this patient has not seen a doctor in decades. The visit 10 days ago where she was started on Lasix was preceded by an ER visit 6 months ago and before that she only had visits for shingles about 2 years ago. The daughters described that the patient has had bruising for all her life and other family members have bruising. She has never been to a Fairground Operator even though it was recommended when the platelets were documented low, at the August 2021 ER visit. Apparently there was a referral made to Hematology but the patient did not go to the appointment. We also learned yesterday that she did not go to the Cardiology appointment, advised in August 2021, until this month, which was 6 months after that A. fib was found. The daughters tell me that the reason she does not go to medical providers is because she thinks they will "just tell her that she is fat". Thus she has not been on prescription medications of any kind for decades, until August of this year, when Metoprolol was started and then 10 days ago, when Lasix was started. Plan: Will consider a social work consult - Current Meds Current Meds: Current Medications Generic Name Dose Route Start Last Admin Trade Name Althea PRN Reason Stop Dose Admin Azithromycin 250 mg 03/23/22 09:00 03/23/22 08:53 Azithromycin 250 Mg Tablet PO 03/25/22 09:01 250 mg DAILY CUONG Administration Furosemide 40 mg 03/22/22 06:00 03/23/22 14:16 Furosemide 40 Mg/4 Ml Vial IVP 40 mg BIDDIURETIC CUONG Administration Hydralazine HCl 10 mg 03/22/22 14:00 03/23/22 14:17 Hydralazine 10 Mg Tablet PO 10 mg TID CUONG Administration Ceftriaxone Sodium 1 gm/ 100 mls @ 200 mls/hr 03/23/22 09:00 03/23/22 09:25 Sodium Chloride IV 03/25/22 09:29 Infused DAILY CUONG Infusion Isosorbide Mononitrate 30 mg 03/22/22 09:00 03/23/22 08:53 Isosorbide Mononitrate Er 30 Mg Tablet PO 30 mg DAILY CUONG Administration Metoprolol Succinate 25 mg 03/22/22 09:00 03/23/22 08:53 Metoprolol Succinate 25 Mg Tablet PO 25 mg DAILY CUONG Administration Oseltamivir Phosphate 30 mg 03/23/22 09:00 03/23/22 08:53 Oseltamivir 30 Mg Capsule PO 30 mg BID CUONG Administration Sodium Chloride 10 ml 03/21/22 17:00 03/23/22 12:45 Sodium Chloride Flush 0.9% 10 Ml Syringe IVP 10 ml 0100,0900,1700 CUONG Administration - Lab Result Fish Bone Diagrams: 03/24/22 04:48 03/24/22 04:48 - Additional Planning My Orders: My Active Orders 03/22/22 15:13 Telemetry- [RC] Q4HR 03/23/22 Evaluate and Treat OT [OT] Routine Evaluate and Treat PT [PT] Routine 03/23/22 09:00 Azithromycin [Zithromax] 250 mg PO DAILY Oseltamivir [Tamiflu] 30 mg PO BID cefTRIAXone [Rocephin] 1 gm Sodium Chloride 0.9% Minibag [Normal Saline 0.9% Minibag] 100 ml IV DAILY 03/24/22 05:00 BMP - BASIC METABOLIC PANEL [CHEM] DAILYLAB CBC - COMP BLD CT W/AUTO DIFF [HEME] DAILYLAB 03/24/22 09:00 Celecoxib [CeleBREX] 50 mg PO DAILY Subjective - Subjective Patient Reports: Feeling Better (Less SOB, but is still on suppl O2 and is minimally active) Objective Vital Signs: Vital Signs - 24 hr 03/22/22 03/22/22 03/22/22 16:05 19:15 21:00 Temperature 37.3 C 36.5 C Heart Rate [ 93 97 Brachial] Respiratory 20 Rate Blood Pressure 104/55 L 104/53 L [Right Brachial artery] O2 Saturation 95 94 If not protocol 2 2 2 : Oxygen Flow, liters/minute 03/22/22 03/23/22 03/23/22 23:34 04:57 07:30 Temperature 37.0 C 36.6 C 36.9 C Heart Rate [ 85 93 109 H Brachial] Respiratory 20 20 20 Rate Blood Pressure 118/64 130/82 H 117/91 H [Right Brachial artery] O2 Saturation 95 97 94 If not protocol 2 2 2 : Oxygen Flow, liters/minute 03/23/22 03/23/22 03/23/22 09:35 13:00 14:19 Temperature 36.2 C L Heart Rate [ 85 Brachial] Respiratory 18 Rate Blood Pressure 117/66 [Right Brachial artery] O2 Saturation 93 If not protocol 2 2 : Oxygen Flow, liters/minute Oxygen O2 Source Nasal cannula Oxygen Flow Rate 2 I&O (Last 24 Hrs): Intake and Output Totals x24h 03/21/22 03/22/22 03/23/22 23:59 23:59 23:59 Intake Total 250 1116 830 Output Total 1005 600 200 Balance -755 516 630 General: Alert, Oriented x3 HEENT: Mucous membr. moist/pink Neck: Other (Cannot evaluate JVP due to morbid obesity) Neuro: Alert, Non Focal Cardiovascular: No murmurs (Very distant heart sounds due to large breasts and morbid obesity) Respiratory: No respiratory distress, Breath sounds nml (Distant breath sounds due to morbid obesity and pendulous breasts) Abdomen: Other (Obese with pannus) Extremities: No clubbing, Other (Trace to 1+ edema to her thighs) - Results Results: Laboratory Results WBC 5.4 x10^3/uL (4.8-10.8) 03/22/22 06:43 RBC 3.88 10^6/uL (4.20-5.40) L 03/22/22 06:43 Hgb 12.3 g/dL (12.0-16.0) 03/22/22 06:43 Hct 39.7 % (37.0-47.0) 03/22/22 06:43 MCV 102.3 fL (81.0-99.0) H 03/22/22 06:43 MCH 31.7 pg (27.0-31.0) H 03/22/22 06:43 MCHC 31.0 g/dL (32.0-36.0) L 03/22/22 06:43 RDW 15.6 % (12.0-15.0) H 03/22/22 06:43 Plt Count 25 10^3/uL (130-450) L* 03/22/22 06:43 MPV TNP 03/22/22 06:43 Neut # (Auto) 4.3 10^3/uL (1.5-6.6) 03/22/22 06:43 Lymph # (Auto) 0.7 10^3/uL (1.5-3.5) L 03/22/22 06:43 [place] # (Auto) 0.4 10^3/uL (0.0-1.0) 03/22/22 06:43 Eos # (Auto) 0.0 10^3/uL (0.0-0.7) 03/22/22 06:43 Baso # (Auto) 0.0 10^3/uL (0.0-0.1) 03/22/22 06:43 Absolute Nucleated RBC 0.00 x10^3/uL 03/22/22 06:43 Total Counted 100 03/21/22 14:58 Band Neuts % (Manual) 0 % (0-10) 03/21/22 14:58 Reactive Lymphs % (Man) 5 % 03/21/22 14:58 Abnorm Lymph % (Manual) 0 % 03/21/22 14:58 Nucleated RBC % 0.0 /100WBC 03/22/22 06:43 Neutrophils # (Manual) 3.7 10^3/uL (1.5-6.6) 03/21/22 14:58 Lymphocytes # (Manual) 0.6 10^3/uL (1.5-3.5) L 03/21/22 14:58 Monocytes # (Manual) 0.3 10^3/uL (0.0-1.0) 03/21/22 14:58 Eosinophils # (Manual) 0.0 10^3/uL (0-0.7) 03/21/22 14:58 Basophils # (Manual) 0.0 10^3/uL (0-0.1) 03/21/22 14:58 Nucleated RBCs 1 % 03/21/22 14:58 Differential Comment MANUAL DIFFERENTIAL 03/21/22 14:58 Manual Slide Review Indicated 03/22/22 06:43 Platelet Estimate DECREASED (<130,000) (NORMAL) 03/22/22 06:43 Platelet Morphology NORMAL APPEARANCE (NORMAL) 03/22/22 06:43 RBC Morph Micro Appear NORMAL APPEARANCE (NORMAL) 03/22/22 06:43 Sodium 140 mmol/L (135-145) 03/22/22 06:43 Potassium 3.5 mmol/L (3.5-5.0) 03/22/22 06:43 Chloride 98 mmol/L (101-111) L 03/22/22 06:43 Carbon Dioxide 33 mmol/L (21-32) H 03/22/22 06:43 Anion Gap 9.0 (6-13) 03/22/22 06:43 BUN 23 mg/dL (6-20) H 03/22/22 06:43 Creatinine 1.1 mg/dL (0.4-1.0) H 03/22/22 06:43 Estimated GFR (MDRD) 47 (>89) L 03/22/22 06:43 Glucose 96 mg/dL (70-100) 03/22/22 06:43 Calcium 10.1 mg/dL (8.5-10.3) 03/22/22 06:43 Magnesium 2.0 mg/dL (1.7-2.8) 03/22/22 06:43 Total Bilirubin 2.1 mg/dL (0.2-1.0) H 03/21/22 14:58 AST 40 IU/L (10-42) 03/21/22 14:58 ALT 20 IU/L (10-60) 03/21/22 14:58 Alkaline Phosphatase 71 IU/L (42-121) 03/21/22 14:58 Troponin I High Sens 36.0 ng/L (2.3-14.8) H* 03/21/22 19:15 B-Natriuretic Peptide 226 pg/mL (5-100) H 03/22/22 06:43 Total Protein 7.4 g/dL (6.7-8.2) 03/21/22 14:58 Albumin 4.2 g/dL (3.2-5.5) 03/21/22 14:58 Globulin 3.2 g/dL (2.1-4.2) 03/21/22 14:58 Albumin/Globulin Ratio 1.3 (1.0-2.2) 03/21/22 14:58 Lipase 47 U/L (22-51) 03/21/22 14:58 TSH 0.91 uIU/mL (0.34-5.60) 03/22/22 06:43 Nasal Adenovirus (PCR) NOT DETECTED 03/21/22 15:13 Nasal B. parapertussis DNA (PCR) NOT DETECTED 03/21/22 15:13 Nasal Coronavir 229E PCR NOT DETECTED 03/21/22 15:13 Nasal Coronavir HKU1 PCR NOT DETECTED 03/21/22 15:13 Nasal Coronavir NL63 PCR NOT DETECTED 03/21/22 15:13 Nasal Coronavir OC43 PCR NOT DETECTED 03/21/22 15:13 Nasal Enterovir/Rhinovir PCR NOT DETECTED 03/21/22 15:13 Nasal Influ A H1 2009 PCR DETECTED A 03/21/22 15:13 Nasal Influenza B PCR NOT DETECTED 03/21/22 15:13 Nasal Parainfluen 1 PCR NOT DETECTED 03/21/22 15:13 Nasal Parainfluen 2 PCR NOT DETECTED 03/21/22 15:13 Nasal Parainfluen 3 PCR NOT DETECTED 03/21/22 15:13 Nasal Parainfluen 4 PCR NOT DETECTED 03/21/22 15:13 Nasal RSV (PCR) NOT DETECTED 03/21/22 15:13 Nasal B.pertussis DNA PCR NOT DETECTED 03/21/22 15:13 Nasal C.pneumoniae (PCR) NOT DETECTED 03/21/22 15:13 [place] Human Metapneumo PCR NOT DETECTED 03/21/22 15:13 Nasal M.pneumoniae (PCR) NOT DETECTED 03/21/22 15:13 Nasal SARS-CoV-2 (PCR) NOT DETECTED 03/21/22 15:13
[2022-03-24 05:17] LABS: BASOPHILS % (AUTO) 0.2 %; EOSINOPHILS % (AUTO) 4.4 %; HCT - HEMATOCRIT 38.5 % (37.0-47.0); HGB - HEMOGLOBIN 11.9 g/dL (12.0-16.0); LYMPHOCYTES % (AUTO) 10.1 %; MEAN CORPUSCULAR HEMOGLOBIN 31.6 pg (27.0-31.0); MEAN CORPUSCULAR HGB CONC 30.9 g/dL (32.0-36.0); MEAN CORPUSCULAR VOLUME 102.1 fL (81.0-99.0); MONOCYTES % (AUTO) 8.1 %; NEUTROPHILS % (AUTO) 76.7 %; PLT - PLATELET COUNT 44 10^3/uL (130-450); RED BLOOD COUNT 3.77 10^6/uL (4.20-5.40); RED CELL DISTRIBUTION WIDTH 15.3 % (12.0-15.0); WHITE BLOOD COUNT 6.2 x10^3/uL (4.8-10.8)
[2022-03-24 05:24] LABS: CALCIUM 9.8 mg/dL (8.5-10.3); CREATININE 1.2 mg/dL (0.4-1.0); POTASSIUM 3.3 mmol/L (3.5-5.0)
[2022-03-24 05:28] LABS: ABNORMAL LYMPHS % (MANUAL) 0 %; BAND NEUTROPHILS % (MANUAL) 0 %
[2022-03-24 05:37] LABS: EOSINOPHILS # (MANUAL) 0.2 10^3/uL (0-0.7); LYMPHOCYTES # (MANUAL) 0.4 10^3/uL (1.5-3.5); LYMPHOCYTES % (MANUAL) 6 %; MONOCYTES # (MANUAL) 0.6 10^3/uL (0.0-1.0)
[2022-03-24 05:38] LABS: DIFFERENTIAL COMMENT MANUAL DIFFERENTIAL; PLATELET ESTIMATE, MANUAL DECREASED (<130,000) (NORMAL); PLATELET MORPHOLOGY NORMAL APPEARANCE (NORMAL); RBC MORPHOLOGY (MULTIPLE) NORMAL APPEARANCE (NORMAL); WBC MORPHOLOGY (MULTIPLE) NORMAL APPEARANCE (NORMAL)
[2022-03-24] MEDS: FUROSEMIDE 40 MG/4 ML VIAL IVP SCH ×2 (06:08→14:19)
[2022-03-24] MEDS: hydrALAZINE 10 MG TABLET PO SCH ×3 (06:08→21:46)
[2022-03-24] MEDS: SODIUM CHLORIDE FLUSH 0.9% 10 ML SYRINGE IVP PRN ×2 (06:08→14:20)
[2022-03-24] MEDS: ISOSORBIDE MONONITRATE ER 30 MG TABLET PO SCH (08:42)
[2022-03-24] MEDS: AZITHROMYCIN 250 MG TABLET PO SCH (08:42)
[2022-03-24] MEDS: METOPROLOL SUCCINATE 25 MG TABLET PO SCH (08:42)
[2022-03-24] MEDS: cefTRIAXone 1 GM in SODIUM CHLORIDE 0.9% MINIBAG 100 ML IV SCH (08:43)
[2022-03-24] MEDS: SODIUM CHLORIDE FLUSH 0.9% 10 ML SYRINGE IVP SCH ×3 (08:44→18:12)
[2022-03-24] MEDS: OSELTAMIVIR 30 MG CAPSULE PO SCH ×2 (08:53→21:47)
[2022-03-24] MEDS: CELEBREX PO SCH (08:54)
[2022-03-24] MEDS ORDERED: CELECOXIB 100 MG CAPSULE PO SCH (09:00)
[2022-03-24] MEDS: POTASSIUM CHLORIDE 10 MEQ CAPSULE PO SCH (09:53)
--- NOTE | 2022-03-24 18:19 | PROVIDER PROGRESS NOTE ---
Assessment/Plan - Problem List (1) Influenzal pneumonia Assessment/Plan: Chest x-ray showed infiltrates and her clinical presentation was that of upper respiratory infection for 10 days, causing the hypoxia. She has less cough and less SOB today Plan: We are continueing with empiric antibiotics of p.o. Zithromax and IV ceftriaxone Qualifiers: Pneumonia type: due to unspecified organism Laterality: bilateral Lung location: lower lobe of lung Qualified Code(s): J18.9 - Pneumonia, unspecified organism (2) Cor Pulmonale Impression: Her complete Echo with Doppler was done and it showed normal LV size with preserved systolic function EF of 65% therefore likely diastolic heart failure but she has a very large RV with preserved RV contractility. The cause of the cor pulmonale could be the current pneumonia on top of (very likely) obesity hypoventilation syndrome. Plan: The Echo report will be given to the family so that she can take it to her angle bender appointment which is in about 2 weeks Continue with careful diuresis (3) Acute on chronic diastolic heart failure (congestive heart failure) Conclusion/Plan: She was advised to see Cardiology when she came into ER in [facility], in August 2021. She never went to see a Pulp Making Plant Operator and also has not had the Echo that was advised then. Her complete Echo with Doppler was done yesterday 03/23 and it showed normal LV size with preserved systolic function EF of 65% therefore likely diastolic heart failure She has been on metoprolol as her only med, for 6 mos. When in ER at admission, her BP was as high as 230/130. Perhaps untreated HTN or RVR from Afib, or the stress of this pneumonia, put her into CHF. Troponin ruled her out for MO. Plan: Continue telemetry monitoring Lasix iv was x1 today and transitioning to oral daily Lasix planned Follow I's and O's, daily weights Follow BMP and magnesium We added meds for BP control Continue with her beta-lanie. Low-salt diet (4) Influenza A infection Plan: We started her on Tamiflu. Resp isolation. (5) Malignant essential hypertension Conclusion/Plan: In the ER, her first 2 blood pressures were 140-170/90-100, then 211/133. Possibly poorly controlled HTN put her into CHF. Plan: Continue IV diuretics twice daily. Continue with her home dose of metoprolol. We also started hydralazine and nitrates. BP was exessively low at 103 systolic yesterday, so the Hydralazine dose was decreased. Low-salt diet (6) Afib Conclusion/Plan: Her ER August 2021 visit showed new onset A. fib and this current ER visits shows she is in A. fib. It does not appear that she has had any work-up for this since the August ER visit. The referral to Cardiology was made but she had not gone yet. An Echo was scheduled for 04/01/22. We checked TSH to rule out hyperthyroidism>> TSH is low normal at 0.91. Troponins ruled her out for MO. Plan: Continue on telemetry to rule out tachycardia (Afib with RVR) Continue with her home dose of beta-lanie She cannot get antiplatelet or anticoagulant agents because of her thromb ocytopenia and Hx of excessive bruising lifelong. (7) Cardiorenal syndrome Conclusion/Plan: Etiology of elevated BUN/creat appears to be cardiorenal syndrome, fcaused by high venous pressure, given her CHF, or it may be intrinsic renal disease given her malignant hypertension. With iv diuretics, her creat has improved. Plan: Avoid nephrotoxins Will continue using Lasix Follow BMP daily (8) Thrombocytopenia Conclusion/Plan: This was documented about 6 months ago, with a platelet count of 29. She was told to get follow-up for this but did not go to the appointment in [place].. Platelet count at admission now was 17. She has very large and extensive ecchymoses of both arms. Yesterday the daughters, in her room, described that the patient has had bruising for all her life and other family members have bruising. She has not had any lab work is decades, per the daughters, because she does not see a doctor regularly. The pt has never been to a Pie Crimping Machine Operator even though that was recommended when the platelets were documented low at the August 2021 ER visit. Apparently there was a referral made to Hematology but the patient did not go to the appointment. Plan: She cannot get antiplatelet or anticoagulants since she is at risk of bleeding with such low platelets. Follow CBC daily, if plt <10, would order a plt transfusion (9) Morbid obesity with BMI of 45.0-49.9, adult Conclusion/Plan: As per Hx. Her BMI is 49 Plan: She needs continued help with nutrition We ordered PT and OT rehab to start (10) Non-compliance with medical management Conclusion/Plan: During my visit in her room on 03/22, the entire family was in the room: Her , 2 daughters and 1 other person. It was revealed that this patient has not seen a doctor in decades. The visit 10 days ago where she was started on Lasix was preceded by an ER visit 6 months ago and before that she only had visits for shingles about 2 years ago. The daughters described that the patient has had bruising for all her life and other family members have bruising. She has never been to a Pie Crimping Machine Operator even though it was recommended when the p latelets were documented low, at the August 2021 ER visit. Apparently there was a referral made to Hematology but the patient did not go to the appointment. We also learned yesterday that she did not go to the Cardiology appointment, advised in August 2021, until this month, which was 6 months after that A. fib was found. The daughters tell me that the reason she does not go to medical providers is b ecause she thinks they will "just tell her that she is fat". Thus she has not been on prescription medications of any kind for decades, until August of this year, when Metoprolol was started and then 10 days ago, when Lasix was started. Plan: She said today, she can see how important it is to get treatment. (11) Acute respiratory failure with hypoxia Assessment/Plan: Resolved, she is on room air at rest, as of this afternoon She is still tachypneic with movement, walked with PT Plan: Continue to treat the underlying presumed causes which appear to be diastolic CHF and PNA Oximetry walk test planned on the day of discharge - Current Meds Current Meds: Current Medications Generic Name Dose Route Start Last Admin Trade Name Freq PRN Reason Stop Dose Admin Azithromycin 250 mg 03/23/22 09:00 03/24/22 08:42 Azithromycin 250 Mg Tablet PO 03/25/22 09:01 250 mg DAILY CUONG Administration Furosemide 40 mg 03/22/22 06:00 03/24/22 14:19 Furosemide 40 Mg/4 Ml Vial IVP 40 mg BIDDIURETIC CUONG Administration Hydralazine HCl 10 mg 03/22/22 14:00 03/24/22 14:20 Hydralazine 10 Mg Tablet PO 10 mg TID CUONG Administration Ceftriaxone Sodium 1 gm/ 100 mls @ 200 mls/hr 03/23/22 09:00 03/24/22 08:43 Sodium Chloride IV 03/25/22 09:29 200 mls/hr DAILY CUONG Administration Isosorbide Mononitrate 30 mg 03/22/22 09:00 03/24/22 08:42 Isosorbide Mononitrate Er 30 Mg Tablet PO 30 mg DAILY CUONG Administration Metoprolol Succinate 25 mg 03/22/22 09:00 03/24/22 08:42 Metoprolol Succinate 25 Mg Tablet PO 25 mg DAILY CUONG Administration Oseltamivir Phosphate 30 mg 03/23/22 09:00 03/24/22 08:53 Oseltamivir 30 Mg Capsule PO 30 mg BID CUONG Administration Celebrex 50mg 50 each 03/24/22 09:00 03/24/22 08:54 PO Not Given DAILY CUONG Potassium Chloride 20 meq 03/24/22 10:00 03/24/22 09:53 Potassium Chloride 10 Meq Capsule PO 20 meq DAILYWM CUONG Administration Sodium Chloride 10 ml 03/21/22 16:52 03/24/22 14:20 Sodium Chloride Flush 0.9% 10 Ml Syringe IVP 10 ml PRN PRN Administration NEEDED PER PROVIDER ORDERS Sodium Chloride 10 ml 03/21/22 17:00 03/24/22 18:12 Sodium Chloride Flush 0.9% 10 Ml Syringe IVP 10 ml 0100,0900,1700 CUONG Administration - Lab Result Fish Bone Diagrams: 03/24/22 04:48 03/24/22 04:48 - Additional Planning My Orders: My Active Orders 03/24/22 09:00 Patient Own Med [Patient Own Medication] 50 each PO DAILY 03/24/22 10:00 Potassium Chloride [Micro-K] 20 meq PO DAILYWM Subjective - Subjective Patient Reports: Feeling Better (As of this afternoon she is on room air at rest. She is still short of breath with walking) Objective Vital Signs: Vital Signs - 24 hr 03/23/22 03/23/22 03/23/22 20:05 21:00 23:29 Temperature 36.7 C 36.3 C L Heart Rate [ 90 83 Brachial] Heart Rate [ Sitting] Heart Rate [ Standing] Respiratory 20 20 Rate Blood Pressure 124/66 123/58 L [Right Brachial artery] Blood Pressure [Sitting] Blood Pressure [Standing] O2 Saturation 96 96 If not protocol 2 2 2 : Oxygen Flow, liters/minute 03/24/22 03/24/22 03/24/22 03:11 07:29 08:29 Temperature 36.5 C 36.2 C L Heart Rate [ 86 89 Brachial] Heart Rate [ Sitting] Heart Rate [ Standing] Respiratory 20 20 Rate Blood Pressure 115/66 118/55 L [Right Brachial artery] Blood Pressure [Sitting] Blood Pressure [Standing] O2 Saturation 94 98 If not protocol 2 2 : Oxygen Flow, liters/minute 03/24/22 03/24/22 03/24/22 10:50 12:49 16:00 Temperature 36.7 C 36.5 C Heart Rate [ 90 107 H Brachial] Heart Rate [ 83 Sitting] Heart Rate [ 102 H Standing] Respiratory 20 20 Rate Blood Pressure 112/45 L 112/60 [Right Brachial artery] Blood Pressure 107/63 [Sitting] Blood Pressure 121/54 L [Standing] O2 Saturation 94 92 If not protocol : Oxygen Flow, liters/minute Oxygen O2 Source Room air Oxygen Flow Rate 2 I&O (Last 24 Hrs): Intake and Output Totals x24h 03/22/22 03/23/22 03/24/22 23:59 23:59 23:59 Intake Total 1116 1570 490 Output Total 600 650 250 Balance 516 920 240 General: Alert, Oriented x3 HEENT: Mucous membr. moist/pink Neck: Other (Cannot evaluate JVP due to morbid obesity) Neuro: Alert, Non Focal Cardiovascular: No murmurs (Distant heart sounds due to morbid obesity) Respiratory: No respiratory distress, Breath sounds nml (Distant breath sounds due to morbid obesity) Abdomen: Other (Obese with pannus) Extremities: Other (1+ edema to the mid thighs, abdominal wall is no longer tense from pitting edema) - Results Results: Laboratory Results WBC 6.2 x10^3/uL (4.8-10.8) 03/24/22 04:48 RBC 3.77 10^6/uL (4.20-5.40) L 03/24/22 04:48 Hgb 11.9 g/dL (12.0-16.0) L 03/24/22 04:48 Hct 38.5 % (37.0-47.0) 03/24/22 04:48 MCV 102.1 fL (81.0-99.0) H 03/24/22 04:48 MCH 31.6 pg (27.0-31.0) H 03/24/22 04:48 MCHC 30.9 g/dL (32.0-36.0) L 03/24/22 04:48 RDW 15.3 % (12.0-15.0) H 03/24/22 04:48 Plt Count 44 10^3/uL (130-450) L 03/24/22 04:48 MPV TNP 03/24/22 04:48 Neut # (Auto) Not Reportable 03/24/22 04:48 Lymph # (Auto) Not Reportable 03/24/22 04:48 Bullitt # (Auto) Not Reportable 03/24/22 04:48 Eos # (Auto) Not Reportable 03/24/22 04:48 Baso # (Auto) Not Reportable 03/24/22 04:48 Absolute Nucleated RBC Not Reportable 03/24/22 04:48 Total Counted 100 03/24/22 04:48 Band Neuts % (Manual) 0 % (0-10) 03/24/22 04:48 Reactive Lymphs % (Man) 5 % 03/21/22 14:58 Abnorm Lymph % (Manual) 0 % 03/24/22 04:48 Nucleated RBC % Not Reportable 03/24/22 04:48 Neutrophils # (Manual) 5.0 10^3/uL (1.5-6.6) 03/24/22 04:48 Lymphocytes # (Manual) 0.4 10^3/uL (1.5-3.5) L 03/24/22 04:48 Monocytes # (Manual) 0.6 10^3/uL (0.0-1.0) 03/24/22 04:48 Eosinophils # (Manual) 0.2 10^3/uL (0-0.7) 03/24/22 04:48 Basophils # (Manual) 0.0 10^3/uL (0-0.1) 03/24/22 04:48 Nucleated RBCs 1 % 03/21/22 14:58 Differential Comment MANUAL DIFFERENTIAL 03/24/22 04:48 Manual Slide Review Indicated 03/22/22 06:43 WBC Morphology NORMAL APPEARANCE (NORMAL) 03/24/22 04:48 Platelet Estimate DECREASED (<130,000) (NORMAL) 03/24/22 04:48 Platelet Morphology NORMAL APPEARANCE (NORMAL) 03/24/22 04:48 RBC Morph Micro Appear NORMAL APPEARANCE (NORMAL) 03/24/22 04:48 Sodium 140 mmol/L (135-145) 03/24/22 04:48 Potassium 3.3 mmol/L (3.5-5.0) L 03/24/22 04:48 Chloride 97 mmol/L (101-111) L 03/24/22 04:48 Carbon Dioxide 34 mmol/L (21-32) H 03/24/22 04:48 Anion Gap 9.0 (6-13) 03/24/22 04:48 BUN 28 mg/dL (6-20) H 03/24/22 04:48 Creatinine 1.2 mg/dL (0.4-1.0) H 03/24/22 04:48 Estimated GFR (MDRD) 43 (>89) L 03/24/22 04:48 Glucose 107 mg/dL (70-100) H 03/24/22 04:48 Calcium 9.8 mg/dL (8.5-10.3) 03/24/22 04:48 Magnesium 2.0 mg/dL (1.7-2.8) 03/22/22 06:43 Total Bilirubin 2.1 mg/dL (0.2-1.0) H 03/21/22 14:58 AST 40 IU/L (10-42) 03/21/22 14:58 ALT 20 IU/L (10-60) 03/21/22 14:58 Alkaline Phosphatase 71 IU/L (42-121) 03/21/22 14:58 Troponin I High Sens 36.0 ng/L (2.3-14.8) H* 03/21/22 19:15 B-Natriuretic Peptide 226 pg/mL (5-100) H 03/22/22 06:43 Total Protein 7.4 g/dL (6.7-8.2) 03/21/22 14:58 Albumin 4.2 g/dL (3.2-5.5) 03/21/22 14:58 Globulin 3.2 g/dL (2.1-4.2) 03/21/22 14:58 Albumin/Globulin Ratio 1.3 (1.0-2.2) 03/21/22 14:58 Lipase 47 U/L (22-51) 03/21/22 14:58 TSH 0.91 uIU/mL (0.34-5.60) 03/22/22 06:43 Nasal Adenovirus (PCR) NOT DETECTED 03/21/22 15:13 Nasal B. parapertussis DNA (PCR) NOT DETECTED 03/21/22 15:13 Nasal Coronavir 229E PCR NOT DETECTED 03/21/22 15:13 Nasal Coronavir HKU1 PCR NOT DETECTED 03/21/22 15:13 Nasal Coronavir NL63 PCR NOT DETECTED 03/21/22 15:13 Nasal Coronavir OC43 PCR NOT DETECTED 03/21/22 15:13 Nasal Enterovir/Rhinovir PCR NOT DETECTED 03/21/22 15:13 Nasal Influ A H1 2009 PCR DETECTED A 03/21/22 15:13 Nasal Influenza B PCR NOT DETECTED 03/21/22 15:13 Nasal Parainfluen 1 PCR NOT DETECTED 03/21/22 15:13 Nasal Parainfluen 2 PCR NOT DETECTED 03/21/22 15:13 Nasal Parainfluen 3 PCR NOT DETECTED 03/21/22 15:13 Nasal Parainfluen 4 PCR NOT DETECTED 03/21/22 15:13 Nasal RSV (PCR) NOT DETECTED 03/21/22 15:13 Nasal B.pertussis DNA PCR NOT DETECTED 03/21/22 15:13 Nasal C.pneumoniae (PCR) NOT DETECTED 03/21/22 15:13 Dalton Human Metapneumo PCR NOT DETECTED 03/21/22 15:13 Nasal M.pneumoniae (PCR) NOT DETECTED 03/21/22 15:13 Nasal SARS-CoV-2 (PCR) NOT DETECTED 03/21/22 15:13
[2022-03-25] MEDS: SODIUM CHLORIDE FLUSH 0.9% 10 ML SYRINGE IVP SCH ×3 (00:45→18:14)
[2022-03-25] MEDS: FUROSEMIDE 40 MG/4 ML VIAL IVP SCH (05:41)
[2022-03-25] MEDS: hydrALAZINE 10 MG TABLET PO SCH ×3 (05:42→22:09)
[2022-03-25] MEDS: POTASSIUM CHLORIDE 10 MEQ CAPSULE PO SCH (09:00)
[2022-03-25] MEDS: OSELTAMIVIR 30 MG CAPSULE PO SCH ×2 (09:02→22:10)
[2022-03-25] MEDS: METOPROLOL SUCCINATE 25 MG TABLET PO SCH ×2 (09:02→22:09)
[2022-03-25] MEDS: ISOSORBIDE MONONITRATE ER 30 MG TABLET PO SCH (09:02)
[2022-03-25] MEDS: cefTRIAXone 1 GM in SODIUM CHLORIDE 0.9% MINIBAG 100 ML IV SCH (09:02)
[2022-03-25] MEDS: AZITHROMYCIN 250 MG TABLET PO SCH (09:02)
[2022-03-25] MEDS: CELEBREX PO SCH (09:05)
--- NOTE | 2022-03-25 20:05 | PROVIDER PROGRESS NOTE ---
Assessment/Plan - Problem List (1) V-tach Assessment/Plan: At 2215 last night, she went into sustained, monomorphic V. tach. It stopped spontaneously. She was sleeping during the time. When she was next evaluated by nurses she had no complaints. Today when I asked her how she felt last night especially regarding any cardiopulmonary symptoms, she said she had a very restless night, could not fall asleep but does not think she had shortness of breath or chest pain overnight. Troponins rechecked, potassium and magnesium rechecked and all were stable today. Plan: Remain on telemetry. She is not ready for DCh today She does not need to be moved into the ICU or started on Amiodarone since there was only one episode of this, and we have no open ICU beds I told the patient she is not safe to be discharged yet. I explained to her, and in room and daughter in room, what VTach is and why it is dangerous. I plan to speak to her compliance field technician and discuss the plan. Very likely the compliance field technician will recommend that she be transferred directly for further work- up. (2) Influenzal pneumonia Assessment/Plan: Chest x-ray showed infiltrates and her clinical presentation was that of upper respiratory infection for 10 days, causing the hypoxia. She has less cough and less SOB today Plan: We are continuing with empiric antibiotics of p.o. Zithromax and IV ceftriaxone Qualifiers: Pneumonia type: due to unspecified organism Laterality: bilateral Lung location: lower lobe of lung Qualified Code(s): J18.9 - Pneumonia, unspecified organism (3) Cor Pulmonale Impression: Her complete Echo with Doppler was done and it showed normal LV size with preserved systolic function EF of 65% therefore likely diastolic heart failure but she has a very large RV with preserved RV contractility. The cause of the cor pulmonale could be the current pneumonia on top of (very likely) obesity hypoventilation syndrome. Plan: The Echo report will be provided with the transfer paperwork Continue with careful diuresis (4) Acute on chronic diastolic heart failure (congestive heart failure) Conclusion/Plan: She was advised to see Cardiology when she came into ER in [facility], in August 2021. She never went to see a Human Resources Intern and also has not had the Echo that was advised then. Her complete Echo with Doppler was done yesterday 03/23 and it showed normal LV size with preserved systolic function EF of 65% therefore likely diastolic heart failure She has been on metoprolol as her only med, for 6 mos. When in ER at admission, her BP was as high as 230/130. Perhaps untreated HTN or RVR from Afib, or the stress of this pneumonia, put her into CHF. Troponin ruled her out for AK. Plan: Continue telemetry monitoring Lasix iv was x1 today and transitioning to oral daily Lasix planned Follow I's and O's, daily weights Follow BMP and magnesium We added meds for BP control Continue with her beta-lanie. Low-salt diet (5) Malignant essential hypertension Conclusion/Plan: In the ER, her first 2 blood pressures were 140-170/90-100, then 211/133. Possibly poorly controlled HTN put her into CHF. Plan: Continue IV diuretics twice daily. Continue with her home dose of metoprolol. We also started hydralazine and nitrates. BP was exessively low at 103 systolic yesterday, so the Hydralazine dose was decreased. Low-salt diet (6) Afib Conclusion/Plan: Her ER August 2021 visit showed new onset A. fib and this current ER visits shows she is in A. fib. It does not appear that she has had any work-up for this since the August ER visit. The referral to Cardiology was made but she had not gone yet. An Echo was scheduled for 04/01/22. We checked TSH to rule out hyperthyroidism>> TSH is low normal at 0.91. Troponins ruled her out for AK. Plan: Continue on telemetry to rule out tachycardia (Afib with RVR) Continue with her home dose of beta-lanie She cannot get antiplatelet or anticoagulant agents because of her thrombocytopenia and Hx of excessive bruising lifelong. (7) Cardiorenal syndrome Conclusion/Plan: Etiology of elevated BUN/creat appears to be cardiorenal syndrome, fcaused by high venous pressure, given her CHF, or it may be intrinsic renal disease given her malignant hypertension. With iv diuretics, her creat has improved. Plan: Avoid nephrotoxins Will continue using Lasix Follow BMP daily (8) Thrombocytopenia Conclusion/Plan: This was documented about 6 months ago, with a platelet count of 29. She was told to get follow-up for this but did not go to the appointment in [place].. Platelet count at admission now was 17. She has very large and extensive ecchymoses of both arms. Yesterday the daught ers, in her room, described that the patient has had bruising for all her life and other family members have bruising. She has not had any lab work is decades, per the daughters, because she does not see a doctor regularly. The pt has never been to a Print Production Associate even though that was recommended when the platelets were documented low at the August 2021 ER visit. Apparently there was a referral made to Hematology but the patient did not go to the appointment. Plan: She cannot get antiplatelet or anticoagulants since she is at risk of bleeding with such low platelets. Follow CBC daily, if plt <10, would order a plt transfusion (9) Morbid obesity with BMI of 45.0-49.9, adult Conclusion/Plan: As per Hx. Her BMI is 49 Plan: She needs continued help with nutrition We ordered PT and OT rehab to start (10) Non-compliance with medical management Conclusion/Plan: During my visit in her room on 03/22, the entire family was in the room: Her , 2 daughters and 1 other person. It was revealed that this patient has not seen a doctor in decades. The visit 10 days ago where she was started on Lasix was preceded by an ER visit 6 months ago and before that she only had visits for shingles about 2 years ago. The daughters described that the patient has had bruising for all her life and other family members have bruising. She has never been to a Print Production Associate even though it was recommended when the platelets were documented low, at the August 2021 ER visit. Apparently there was a referral made to Hematology but the patient did not go to the appointment. We also learned yesterday that she did not go to the Cardiology appointment, advised in August 2021, until this month, which was 6 months after that A. fib was found. The daughters tell me that the reason she does not go to medical providers is because she thinks they will "just tell her that she is fat". Thus she has not been on prescription medications of any kind for decades, until August of this year, when Metoprolol was started and then 10 days ago, when Lasix was started. Plan: She said today, she can see how important it is to get treatment. (11) Acute respiratory failure with hypoxia Assessment/Plan: Resolved, she is on room air at rest, as of this afternoon She is still tachypneic with movement, walked with PT Plan: Continue to treat the underlying presumed causes which appear to be diastolic CHF and PNA Oximetry walk test planned on the day of discharge - Current Meds Current Meds: Current Medications Generic Name Dose Route Start Last Admin Trade Name Freq PRN Reason Stop Dose Admin Acetaminophen 650 mg 03/21/22 16:52 03/25/22 05:47 Acetaminophen 325 Mg Tablet PO 650 mg Q4HR PRN Administration Pain 1 to 4, or Fever Hydralazine HCl 10 mg 03/22/22 14:00 03/25/22 15:11 Hydralazine 10 Mg Tablet PO 10 mg TID CUONG Administration Isosorbide Mononitrate 30 mg 03/22/22 09:00 03/25/22 09:02 Isosorbide Mononitrate Er 30 Mg Tablet PO 30 mg DAILY CUONG Administration Oseltamivir Phosphate 30 mg 03/23/22 09:00 03/25/22 09:02 Oseltamivir 30 Mg Capsule PO 30 mg BID CUONG Administration Celebrex 50mg 50 each 03/24/22 09:00 03/25/22 09:05 PO Not Given DAILY CUONG Potassium Chloride 20 meq 03/24/22 10:00 03/25/22 09:00 Potassium Chloride 10 Meq Capsule PO 20 meq DAILYWM CUONG Administration Sodium Chloride 10 ml 03/21/22 16:52 03/24/22 14:20 Sodium Chloride Flush 0.9% 10 Ml Syringe IVP 10 ml PRN PRN Administration NEEDED PER PROVIDER ORDERS Sodium Chloride 10 ml 03/21/22 17:00 03/25/22 18:14 Sodium Chloride Flush 0.9% 10 Ml Syringe IVP 10 ml 0100,0900,1700 CUONG Administration - Lab Result Fish Bone Diagrams: 03/24/22 04:48 03/24/22 04:48 - Additional Planning My Orders: My Active Orders 03/25/22 21:00 Metoprolol Succinate [Toprol Xl] 25 mg PO BID 03/26/22 09:00 Furosemide [Lasix] 40 mg PO DAILY Subjective - Subjective Patient Reports: Feeling Better (She is breathing on room air. She is short of breath with activity and somewhat weak from not getting out of bed for days) Objective Vital Signs: Vital Signs - 24 hr 03/24/22 03/25/22 03/25/22 20:41 00:42 04:56 Temperature 36.7 C 36.9 C 36.7 C Heart Rate [ 94 92 83 Brachial] Respiratory 20 18 18 Rate Blood Pressure 121/59 L 112/64 119/60 [Right Brachial artery] O2 Saturation 92 92 94 03/25/22 03/25/22 03/25/22 05:43 07:17 09:04 Temperature 36.3 C L Heart Rate [ 83 83 115 H Brachial] Respiratory 18 22 Rate Blood Pressure 114/59 L 128/66 115/54 L [Right Brachial artery] O2 Saturation 93 03/25/22 03/25/22 03/25/22 11:25 15:13 17:00 Temperature 36.2 C L 36.5 C Heart Rate [ 86 70 81 Brachial] Respiratory 20 19 19 Rate Blood Pressure 110/52 L 120/55 L 117/58 L [Right Brachial artery] O2 Saturation 95 95 93 Oxygen O2 Source Room air Oxygen Flow Rate 2 I&O (Last 24 Hrs): Intake and Output Totals x24h 03/23/22 03/24/22 03/25/22 23:59 23:59 23:59 Intake Total 1570 590 960 Output Total 650 250 Balance 920 340 960 General: Alert, Oriented x3 HEENT: EOMI Neck: Supple, Other (Cannot evaluate JVP due to morbid obesity) Neuro: Alert, Non Focal Cardiovascular: Regular rate, No murmurs (Distant heart sounds due to morbid obesity and large breasts) Respiratory: No respiratory distress, Breath sounds nml (Distant breath sounds due to morbid obesity) Abdomen: Normal bowel sounds, No tenderness, Other (Obese with a pannus) Extremities: No clubbing, Other (Trace edema pretibially. Very obese thighs) - Results Results: Laboratory Results WBC 6.2 x10^3/uL (4.8-10.8) 03/24/22 04:48 RBC 3.77 10^6/uL (4.20-5.40) L 03/24/22 04:48 Hgb 11.9 g/dL (12.0-16.0) L 03/24/22 04:48 Hct 38.5 % (37.0-47.0) 03/24/22 04:48 MCV 102.1 fL (81.0-99.0) H 03/24/22 04:48 MCH 31.6 pg (27.0-31.0) H 03/24/22 04:48 MCHC 30.9 g/dL (32.0-36.0) L 03/24/22 04:48 RDW 15.3 % (12.0-15.0) H 03/24/22 04:48 Plt Count 44 10^3/uL (130-450) L 03/24/22 04:48 MPV TNP 03/24/22 04:48 Neut # (Auto) Not Reportable 03/24/22 04:48 Lymph # (Auto) Not Reportable 03/24/22 04:48 [place] # (Auto) Not Reportable 03/24/22 04:48 Eos # (Auto) Not Reportable 03/24/22 04:48 Baso # (Auto) Not Reportable 03/24/22 04:48 Absolute Nucleated RBC Not Reportable 03/24/22 04:48 Total Counted 100 03/24/22 04:48 Band Neuts % (Manual) 0 % (0-10) 03/24/22 04:48 Reactive Lymphs % (Man) 5 % 03/21/22 14:58 Abnorm Lymph % (Manual) 0 % 03/24/22 04:48 Nucleated RBC % Not Reportable 03/24/22 04:48 Neutrophils # (Manual) 5.0 10^3/uL (1.5-6.6) 03/24/22 04:48 Lymphocytes # (Manual) 0.4 10^3/uL (1.5-3.5) L 03/24/22 04:48 Monocytes # (Manual) 0.6 10^3/uL (0.0-1.0) 03/24/22 04:48 Eosinophils # (Manual) 0.2 10^3/uL (0-0.7) 03/24/22 04:48 Basophils # (Manual) 0.0 10^3/uL (0-0.1) 03/24/22 04:48 Nucleated RBCs 1 % 03/21/22 14:58 Differential Comment MANUAL DIFFERENTIAL 03/24/22 04:48 Manual Slide Review Indicated 03/22/22 06:43 WBC Morphology NORMAL APPEARANCE (NORMAL) 03/24/22 04:48 Platelet Estimate DECREASED (<130,000) (NORMAL) 03/24/22 04:48 Platelet Morphology NORMAL APPEARANCE (NORMAL) 03/24/22 04:48 RBC Morph Micro Appear NORMAL APPEARANCE (NORMAL) 03/24/22 04:48 Sodium 140 mmol/L (135-145) 03/24/22 04:48 Potassium 3.3 mmol/L (3.5-5.0) L 03/24/22 04:48 Chloride 97 mmol/L (101-111) L 03/24/22 04:48 Carbon Dioxide 34 mmol/L (21-32) H 03/24/22 04:48 Anion Gap 9.0 (6-13) 03/24/22 04:48 BUN 28 mg/dL (6-20) H 03/24/22 04:48 Creatinine 1.2 mg/dL (0.4-1.0) H 03/24/22 04:48 Estimated GFR (MDRD) 43 (>89) L 03/24/22 04:48 Glucose 107 mg/dL (70-100) H 03/24/22 04:48 Calcium 9.8 mg/dL (8.5-10.3) 03/24/22 04:48 Magnesium 2.3 mg/dL (1.7-2.8) 03/25/22 08:25 Total Bilirubin 2.1 mg/dL (0.2-1.0) H 03/21/22 14:58 AST 40 IU/L (10-42) 03/21/22 14:58 ALT 20 IU/L (10-60) 03/21/22 14:58 Alkaline Phosphatase 71 IU/L (42-121) 03/21/22 14:58 Troponin I High Sens 36.2 ng/L (2.3-14.8) H* 03/25/22 14:24 B-Natriuretic Peptide 122 pg/mL (5-100) H 03/25/22 14:24 Total Protein 7.4 g/dL (6.7-8.2) 03/21/22 14:58 Albumin 4.2 g/dL (3.2-5.5) 03/21/22 14:58 Globulin 3.2 g/dL (2.1-4.2) 03/21/22 14:58 Albumin/Globulin Ratio 1.3 (1.0-2.2) 03/21/22 14:58 Lipase 47 U/L (22-51) 03/21/22 14:58 TSH 0.91 uIU/mL (0.34-5.60) 03/22/22 06:43 Nasal Adenovirus (PCR) NOT DETECTED 03/21/22 15:13 Nasal B. parapertussis DNA (PCR) NOT DETECTED 03/21/22 15:13 Nasal Coronavir 229E PCR NOT DETECTED 03/21/22 15:13 Nasal Coronavir HKU1 PCR NOT DETECTED 03/21/22 15:13 Nasal Coronavir NL63 PCR NOT DETECTED 03/21/22 15:13 Nasal Coronavir OC43 PCR NOT DETECTED 03/21/22 15:13 Nasal Enterovir/Rhinovir PCR NOT DETECTED 03/21/22 15:13 Nasal Influ A H1 2009 PCR DETECTED A 03/21/22 15:13 Nasal Influenza B PCR NOT DETECTED 03/21/22 15:13 Nasal Parainfluen 1 PCR NOT DETECTED 03/21/22 15:13 Nasal Parainfluen 2 PCR NOT DETECTED 03/21/22 15:13 Nasal Parainfluen 3 PCR NOT DETECTED 03/21/22 15:13 Nasal Parainfluen 4 PCR NOT DETECTED 03/21/22 15:13 Nasal RSV (PCR) NOT DETECTED 03/21/22 15:13 Nasal B.pertussis DNA PCR NOT DETECTED 03/21/22 15:13 Nasal C.pneumoniae (PCR) NOT DETECTED 03/21/22 15:13 Dalton Human Metapneumo PCR NOT DETECTED 03/21/22 15:13 Nasal M.pneumoniae (PCR) NOT DETECTED 03/21/22 15:13 Nasal SARS-CoV-2 (PCR) NOT DETECTED 03/21/22 15:13
[2022-03-26] MEDS: SODIUM CHLORIDE FLUSH 0.9% 10 ML SYRINGE IVP SCH ×3 (01:00→17:45)
[2022-03-26] MEDS: hydrALAZINE 10 MG TABLET PO SCH ×2 (05:34→17:45)
[2022-03-26] MEDS ORDERED: FUROSEMIDE 40 MG TABLET PO SCH (09:00)
[2022-03-26] MEDS: POTASSIUM CHLORIDE 10 MEQ CAPSULE PO SCH (09:31)
[2022-03-26] MEDS: ISOSORBIDE MONONITRATE ER 30 MG TABLET PO SCH (09:32)
[2022-03-26] MEDS: OSELTAMIVIR 30 MG CAPSULE PO SCH (09:32)
[2022-03-26] MEDS: METOPROLOL SUCCINATE 25 MG TABLET PO SCH (09:32)
[2022-03-26] MEDS: CELEBREX PO SCH (09:33)
--- NOTE | 2022-03-26 16:50 | Discharge Plan ---
Discharge Plan Problem Reviewed?: Yes Disposition: 02 Transfer Acute Care Hosp Condition: Serious No Smoking: If you smoke, Please STOP! Call for help. Follow-up with: GUANACO CALDERON PA [Primary Care Provider] -
--- NOTE | 2022-03-26 16:51 | DISCHARGE SUMMARY ---
Discharge Summary Admit Date: 03/21/22 Discharge Date: 03/26/22 Discharging Provider: Emilia Medina Primary Care Provider: Cecilio Rosario Code Status: Attempt Resuscitation Condition at Discharge: Serious Discharge Disposition: 02 Transfer Acute Care Hosp - [facility] History of Present Illness: This is an 86-year-old white female with possibly a history of hypertension. She was sent to the ER in August 2021 when at a clinic visit she was found to be in new onset of A. fib. She was asymptomatic with this, had no palpitations, chest pain, dyspnea or edema. She was started on metoprolol. Labs then showed she had thrombocytopenia with a platelet count of 29, therefore no anticoagulants or antiplatelets were started. She was told to get follow-up and that she needs an echo. She apparently did not have an echo ordered. Approximately 10 days ago she started to develop a URI along with her daughter with whom she lives. She had a cough, shortness of breath, no appetite and malaise. Because of the shortness of breath she went to her provider who felt t hat she was in heart failure because of shortness of breath and leg edema. She was started on Lasix 60 mg daily. With this she has had good diuresis and lost 25 pounds over the 6 days. Her shortness of breath however, has not improved and she presented to the ER today. She was desaturating on room air with an O2 sat of 88%, which improved on 2 L supplemental O2 via n.c. Wheezing was heard and she was ordered to get a nebulizer treatment. Chest x-ray showed volume overload and possible early bilateral infiltrates. She received a dose of Lasix 80 mg IV and was ordered to get Zithromax and Ceftriaxone. Her troponin is 36, BNP 350, and BUN/creat 27/1.2 which are elevated compared to August 2021, when it was 22/1.0. Her WBC is 4.6 and her entire respiratory panel is still pending. Given her new need for supplemental oxygen, the ED provider reached out to the Hospitalist team and we discussed the need to give further treatment for this lady. She will be placed in Observation for management of a possible CHF exacerbation and possible pneumonia, causing hypoxia. - HOSPITAL COURSE Hospital Course: (1) Acute respiratory failure with hypoxia She was tachypneic, orthopneic, had a cough and hypoxia. She was put on oxygen and with treatment of the underlying presumed causes (which were diastolic CHF and PNA), her O2 needs decreased. (2) Influenzal pneumonia Chest x-ray showed infiltrates and her clinical presentation was that of upper respiratory infection for 10 days, causing a cough and hypoxia. She had a course of Tamiflu and empiric antibiotics of p.o. Zithromax and IV ceftriaxone. (3) Cor Pulmonale Her complete Echo with Doppler was done and it showed normal LV size with preserved systolic function EF of 65% but she has a very large RV with preserved RV contractility. The cause of the cor pulmonale could be the current pneumonia on top of (very likely) obesity hypoventilation syndrome. (4) Acute on chronic diastolic heart failure (congestive heart failure) She was advised to see Cardiology when she came into ER in [facility], in August 2021. She never went to see a [employer], and also never had the Echo that was advised then. An Echo done here showed normal LV size with preserved systolic function EF of 65% and diastolic heart failure. She had been on metoprolol as her only med for 6 mos. Perhaps untreated HTN or RVR from Afib, or the stress of Influenza and a pneumonia, put her into CHF. Troponins ruled her out for PA. She was treated with Lasix iv transitioned to oral daily Lasix and we continued the Metoprolol. (5) V-tach On 03/25/22 she went into sustained, monomorphic V. tach. It lasted 2 min and stopped spontaneously. She was sleeping during the time. When she was next evaluated by nurses, she had no complaints, however, to me she described a very restless night, could not fall asleep. Troponins were rechecked, potassium and magnesium were rechecked and all were stable. She was not safe to be discharged. She was accepted in transfer to Hospitalist service and to have Cardiology work up at [facility]. (6) [facility] Her ER August 2021 visit showed new onset A. fib and she never saw Cardiology to have a work-up. The referral to Cardiology was made but she had not gone yet. An Echo was scheduled for the future. We checked TSH to rule out hyperthyroidism>> TSH was low normal at 0.91. Troponins ruled her out for PA. Her home dose of beta-lanie kept the rate controlled. She was not on antiplatelet or anticoagulant agents because of her marked thrombocytopenia and Hx of excessive bruising lifelong. (7) Thrombocytopenia This was documented about 6 months ago, with a platelet count of 29. She was told to get follow-up for this but did not go to the appointment in [place]. Platelet count this admission was 17. She has very large and extensive ecchymoses of both arms. The daughters revealed that the patient has had bruising for all her life (and other family members have bruising). She has not had any lab work is decades, per the daughters, because she does not see a doctor regularly. The pt has never been to a [employer], and that had been recommended when the platelets were documented low at the August 2021 ER visit. Apparently there was a referral made to Hematology but the patient did not go to the appointment. Plts here were 44 when last tested. (8) Malignant essential hypertension In the ER, her blood pressures 211/133. Her new cardiac meds corrected the HTN. (9) Cardiorenal syndrome Etiology of elevated BUN/creat appeared to be cardiorenal syndrome, caused by high venous pressure with her CHF, or it may be intrinsic renal disease given her malignant hypertension. With iv diuretics, her creat has improved. (10) Morbid obesity with BMI of 45.0-49.9, adult As per Hx. Her BMI is 49. She needs continued help with nutrition (11) Non-compliance with medical management It was revealed that this patient has not seen a doctor in possibly 4 decades, except minor problem visits rarely. The visit 10 days ago where she was started on Lasix was preceded by an ER visit 6 months ago and before that she only had visits for shingles about 2 years ago. The daughters described that the patient has had bruising for all her life and other family members have bruising. She has never been to a [employer] even though it was recommended when the platelets were documented low, at the August 2021 ER visit. Apparently there was a referral made to Hematology but the patient did not go to the appointment. We also learned yesterday that she did not go to the Cardiology appointment, advised in August 2021, until this month. The daughters told me that the reason she did not go to medical providers is because she thinks they will "just tell her that she is fat". Thus she has not been on prescription medications of any kind for decades, until August of this year, when Metoprolol was started and then 10 days ago, when Lasix was started. - ALLERGIES Allergies/Adverse Reactions: Allergies Allergy/AdvReac Type Severity Reaction Status Date / Time codeine Allergy Emesis Verified 03/21/22 15:12 Opioids - Morphine Analogues Allergy Emesis Verified 03/21/22 15:12 Opioids-Meperidine and Allergy Emesis Verified 03/21/22 15:12 Related Opioids-Methadone and Related Allergy Emesis Verified 03/21/22 15:12 gabapentin AdvReac Unknown Verified 03/21/22 15:12 - MEDICATIONS Home Medications: Ambulatory Orders Medication Instructions Recorded Confirmed Metoprolol Succinate [Toprol Xl] 25 mg PO DAILY #30 tablet 08/28/21 03/21/22 Celecoxib [Celebrex] 50 mg PO DAILY 03/21/22 03/21/22 Furosemide [Lasix] 60 mg PO DAILY 03/21/22 03/21/22 - PHYSICAL EXAM AT DISCHARGE General Appearance: positive: No acute distress, Other (Morbidly obese) Eyes Bilateral: positive: Normal inspection ENT: positive: No signs of dehydration Neck: positive: Other (Cannot eval JVP due to morbid obesity) Respiratory: positive: No respiratory distress, Breath sounds nml Cardiovascular: positive: No murmur (distant heart sounds due to morbid obesity and large breasts), Irregularly irregular Abdomen: positive: Non-tender, Other (Obese with a pannus) Skin: positive: Warm, Dry Extremities: positive: Other (Trace pre-tibial and thigh edema. Large ecchymoses of arms) Neurologic/Psychiatric: positive: Oriented x3, Motor nml, Other (CADDO) - LABS Result Diagrams: 03/24/22 04:48 03/24/22 04:48 - DIAGNOSTIC IMAGING Diagnostic Imaging Results: Final report reviewed - FOLLOW UP Follow Up: This will be determined after her hospitalization at [facility]. - TIME SPENT Time Spent in Discharge (Minutes): 65
[2022-03-26 17:49] VITALS: BP 125/58
== END 2022-03-26 18:05 | disposition short-term general hospital (02) | DRG 291 ==
LOC: EDUNIT# → ED 14:42 → MS2 16:53 → OBSVTOIN 03-22 12:09 → INTOOBSV 03-22 12:09
PROVIDERS: ADMIT Internal Medicine; ATTEND Internal Medicine
DX: I11.0 Hypertensive heart disease with heart failure (principal); I50.9 Heart failure, unspecified; J18.9 Pneumonia, unspecified organism; I13.0 Hypertensive heart and chronic kidney disease with heart failure and stage 1 through stage 4 chronic kidney disease, or unspecified chronic kidney disease; I50.33 Acute on chronic diastolic (congestive) heart failure; N17.9 Acute kidney failure, unspecified; E66.01 Morbid (severe) obesity due to excess calories; J96.01 Acute respiratory failure with hypoxia; Z20.822 Contact with and (suspected) exposure to COVID-19; J10.01 Influenza due to other identified influenza virus with the same other identified influenza virus pneumonia; E66.2 Morbid (severe) obesity with alveolar hypoventilation; Z68.41 Body mass index [BMI] 40.0-44.9, adult; I47.20 Ventricular tachycardia, unspecified; I48.91 Unspecified atrial fibrillation; D69.6 Thrombocytopenia, unspecified; I27.81 Cor pulmonale (chronic); N18.9 Chronic kidney disease, unspecified; H54.7 Unspecified visual loss; Z79.899 Other long term (current) drug therapy; Z87.891 Personal history of nicotine dependence; Z91.199 Patient's noncompliance with other medical treatment and regimen due to unspecified reason
CPT/HCPCS: 36415; 71045; 80048; 80053; 83690; 83735; 83880; 84443; 84484; 85025; 87633; 93005; 93306; 94640; 96365; 96375; 96376; 97110; 97116; 97161; 97165; 99284; 99285; A9270

== ENCOUNTER 2023-05-28 10:46 | Outpatient (CLI) | payer MEDICARE, OTHER | END 2023-05-28 23:59 | disposition critical access hospital (66) | LOC: EMS 10:46 | DX: R06.02 Shortness of breath (principal); R60.0 Localized edema | CPT/HCPCS: A0425; A0429 ==

== ENCOUNTER 2023-05-28 11:11 | Emergency (ER) | payer MEDICARE, OTHER ==
--- NOTE | 2023-05-28 12:04 | ED Physician Documentation ---
History of Present Illness - Stated complaint Stated Complaint: SOA - Chief complaint Chief Complaint: Resp - History obtained from History obtained from: Patient, Family, EMS - History of Present Illness Pain level max: 0 Pain level now: 0 - Additonal information Additional information: 87 year old female with a history of CHF presents with feeling like she has "fluid building up in her lungs". States she saw her PCP 2 days ago and had lasix increased at that time from 80mg daily to 100mg daily. Patient states that she has had some rhinorrhea, wet cough. Nonproductive. No fevers. No chills. Had negative COVID swab 2 days ago. Her last BNP was approximately 270. Last creatinine was 1.2. She is accompanied by her family today. The daughter states that when a nurse checked her R leg 2 days ago for edema that she cause a large hemorrhagic bulla and that the patient has very sensitive skin. They are here requesting "an IV dose of lasix". Patient states she took her extra 20mg of lasix yesterday and today. The patient was last echocardiogram here from 03/23/2022 shows a normal left ventricular size and function. EF of 65 to 70% with mild LVH. Dilated right ventricle size and systolic function. Moderate tricuspid regurg. Review of Systems Constitutional: denies: Fever, Chills Throat: denies: Sore throat Cardiac: denies: Chest pain / pressure, Palpitations Respiratory: reports: Cough (moist, non-productive) GI: denies: Vomiting Skin: denies: Rash Musculoskeletal: denies: Neck pain, Back pain Neurologic: denies: Headache PD PAST MEDICAL HISTORY - Past Medical History Cardiovascular: Congestive heart failure, Atrial fibrillation Respiratory: None Neuro: None Endocrine/Autoimmune: None GI: None [employer]OL [employer] OPERATOR: None : None HEENT: Chronic vision loss Psych: None Musculoskeletal: None Derm: None - Past Surgical History Past Surgical History: No General: Appendectomy - Present Medications Home Medications: Ambulatory Orders Medication Instructions Recorded Confirmed Celecoxib [Celebrex] 50 mg PO DAILY 03/21/22 03/21/22 Furosemide [Lasix] 80 mg PO DAILY 03/21/22 03/21/22 Aspirin Chewable [[place] 81 mg PO DAILY 05/28/23 05/28/23 Aspirin] Furosemide [Lasix] 20 mg PO DAILY 05/28/23 05/28/23 Metoprolol Succinate [Toprol Xl] 50 mg PO BID 05/28/23 05/28/23 - Allergies Allergies/Adverse Reactions: Allergies Allergy/AdvReac Type Severity Reaction Status Date / Time No Known Drug Allergies Allergy Verified 05/28/23 11:36 - Social History Does the pt smoke?: No Smoking Status: Never smoker Does the pt drink ETOH?: Yes - POLST Patient has POLST: No PD ED PE NORMAL - Vitals Vital signs reviewed: Yes - General General: Alert and oriented X 3, No acute distress - HEENT HEENT: PERRL, Moist mucous membranes - Neck Neck: Supple, no meningeal sign - Cardiac Cardiac: RRR, Strong equal pulses - Respiratory Respiratory: No respiratory distress, Other (Diminished breath sounds and mild wheezing bilaterally) - Abdomen Abdomen: Soft, Non tender, Non distended - Derm Derm: Warm and dry - Extremities Extremities: Other (non-pitting edema B LE, hemorrhagic bulla on the R LE) - Neuro Neuro: Alert and oriented X 3 - Psych Psych: Normal mood, Normal affect Results - Vitals Vitals: Vital Signs - 24 hr 05/28/23 05/28/23 11:18 13:27 Temperature 36.4 C L Heart Rate 68 63 Respiratory 16 16 Rate Blood Pressure 164/100 H 157/98 H O2 Saturation 98 95 Oxygen O2 Source Room air - EKG (time done) 1207 EKG releavant findings:: EKG personally interpreted by author of this note. Relevant findings are: Rate: Rate (enter#) (67) Rhythm: Atrial fibrillation [place]: Normal QRS: Normal Ischemia: Normal ST segments - Labs Labs: Laboratory Tests 05/28/23 05/28/23 05/28/23 12:05 12:17 12:17 WBC 8.3 RBC 3.69 L Hgb 11.4 L Hct 36.7 L MCV 99.5 H MCH 30.9 MCHC 31.1 L RDW 15.1 H Plt Count 165 MPV 10.7 Neut # (Auto) 7.1 H Lymph # (Auto) 0.4 L Hitchcock # (Auto) 0.7 Eos # (Auto) 0.0 Baso # (Auto) 0.0 Absolute Nucleated RBC 0.00 Nucleated RBC % 0.0 Sodium 131 L Potassium 4.4 Chloride 98 L Carbon Dioxide 28 Anion Gap 5.0 L BUN 24 H Creatinine 1.3 Estimated GFR (MDRD) 39 L Glucose 103 Calcium 10.7 H Total Bilirubin 0.8 AST 38 ALT 27 Alkaline Phosphatase 128 H B-Natriuretic Peptide Total Protein 7.0 Albumin 4.0 Globulin 3.0 Albumin/Globulin Ratio 1.3 Nasal Adenovirus (PCR) NOT DETECTED Nasal B. parapertussis DNA (PCR) NOT DETECTED Nasal Coronavir 229E PCR NOT DETECTED Nasal Coronavir HKU1 PCR NOT DETECTED Nasal Coronavir NL63 PCR NOT DETECTED Nasal Coronavir OC43 PCR NOT DETECTED Nasal Enterovir/Rhinovir PCR NOT DETECTED Nasal Influenza B PCR NOT DETECTED Nasal Influenza A PCR NOT DETECTED Nasal Parainfluen 1 PCR NOT DETECTED Nasal Parainfluen 2 PCR NOT DETECTED Nasal Parainfluen 3 PCR NOT DETECTED Nasal Parainfluen 4 PCR NOT DETECTED Nasal RSV (PCR) DETECTED A Nasal B.pertussis DNA PCR NOT DETECTED Nasal C.pneumoniae (PCR) NOT DETECTED [place] Human Metapneumo PCR NOT DETECTED Nasal M.pneumoniae (PCR) NOT DETECTED Nasal SARS-CoV-2 (PCR) NOT DETECTED 05/28/23 12:17 WBC RBC Hgb Hct MCV MCH MCHC RDW Plt Count MPV Neut # (Auto) Lymph # (Auto) Hitchcock # (Auto) Eos # (Auto) Baso # (Auto) Absolute Nucleated RBC Nucleated RBC % Sodium Potassium Chloride Carbon Dioxide Anion Gap BUN Creatinine Estimated GFR (MDRD) Glucose Calcium Total Bilirubin AST ALT Alkaline Phosphatase B-Natriuretic Peptide 287 H Total Protein Albumin Globulin Albumin/Globulin Ratio Nasal Adenovirus (PCR) Nasal B. parapertussis DNA (PCR) Nasal Coronavir 229E PCR Nasal Coronavir HKU1 PCR Nasal Coronavir NL63 PCR Nasal Coronavir OC43 PCR Nasal Enterovir/Rhinovir PCR Nasal Influenza B PCR Nasal Influenza A PCR Nasal Parainfluen 1 PCR Nasal Parainfluen 2 PCR Nasal Parainfluen 3 PCR Nasal Parainfluen 4 PCR Nasal RSV (PCR) Nasal B.pertussis DNA PCR Nasal C.pneumoniae (PCR) Dalton Human Metapneumo PCR Nasal M.pneumoniae (PCR) Nasal SARS-CoV-2 (PCR) - Rads (name of study) cxr Relevant Findings:: Final report received, See rad report PD Medical Decision Making - ED course Complexity details: reviewed results, re-evaluated patient, considered differential, d/w patient ED course: Patient is an 87-year-old female who presents to the emergency department with rhinorrhea, cough and congestion. Also has had some weight gain. Has a history of right-sided CHF. She is morbidly obese but has never been evaluated for pickwickian syndrome, sleep apnea or other potential reversible causes of her right-sided heart failure. There is no pneumonia. No hypoxia. No respiratory distress. She was given extra dose of Lasix 40 mg IV. Recommend that she follow-up closely with her doctor for further care. Recommend that she have a sleep study as she would likely benefit from CPAP to potentially decrease the pressure in her lungs when she is sleeping. She states she normally lies flat and lays on her side. Patient is well-appearing, nontoxic. Afebrile. Creatinine is at her baseline. BNP is near her baseline as well. No indication for antibiotics. She already has increased dose of Lasix at home. Patient likely needs further evaluation with cardiology as an outpatient in addition to the sleep study. Patient and family counseled regarding signs and symptoms for which I believe and urgent re-evaluation would be necessary. Patient with good understanding of and agreement to plan and is comfortable going home at this time This document was made in part using voice recognition software. While efforts are made to proofread this document, sound alike and grammatical errors may occur. Cardiomegaly with findings suspicious for pulmonary edema/CHF. Concurrent infectious or inflammatory process not excluded if clinically appropriate. No focal consolidation. Departure - Departure Disposition: 01 Home, Self Care Clinical Impression: RSV infection CHF (congestive heart failure) Qualifiers: Heart failure type: unspecified Heart failure chronicity: acute on chronic Qualified Code(s): I50.9 - Heart failure, unspecified Condition: Good Instructions: ED CHF Right Side Follow-Up: your,doctor in 1 week [Other] Comments: You were given extra dose of IV Lasix, 40 mg today. Please continue your current medications at home. Please follow-up with your doctor for further care. As we discussed you were positive for RSV today. This is a viral upper respiratory illness and will resolve on its own, but may be making you feel like there is fluid in your lungs because of the secretions from the virus. It is recommended that you have a sleep study as you may be suffering from pickwickian syndrome or hypoventilation. This may be helped by a CPAP which might help your heart failure. Please return if you worsen. Forms: PCP List Discharge Date/Time: 05/28/23 13:41
[2023-05-28 12:40] LABS: BASOPHILS % (AUTO) 0.2 %; EOSINOPHILS % (AUTO) 0.2 %; HCT - HEMATOCRIT 36.7 % (37.0-47.0); HGB - HEMOGLOBIN 11.4 g/dL (12.0-16.0); LYMPHOCYTES # (AUTO) 0.4 10^3/uL (1.5-3.5); LYMPHOCYTES % (AUTO) 5.1 %; MEAN CORPUSCULAR HEMOGLOBIN 30.9 pg (27.0-31.0); MEAN CORPUSCULAR HGB CONC 31.1 g/dL (32.0-36.0); MEAN CORPUSCULAR VOLUME 99.5 fL (81.0-99.0); MEAN PLATELET VOLUME 10.7 fL (7.9-10.8); MONOCYTES # (AUTO) 0.7 10^3/uL (0.0-1.0); MONOCYTES % (AUTO) 8.5 %; NEUTROPHILS # (AUTO) 7.1 10^3/uL (1.5-6.6); NEUTROPHILS % (AUTO) 85.6 %; PLT - PLATELET COUNT 165 10^3/uL (130-450); RED BLOOD COUNT 3.69 10^6/uL (4.20-5.40); RED CELL DISTRIBUTION WIDTH 15.1 % (12.0-15.0); WHITE BLOOD COUNT 8.3 x10^3/uL (4.8-10.8)
[2023-05-28 12:51] LABS: ALBUMIN/GLOBULIN RATIO 1.3 (1.0-2.2); BILIRUBIN,TOTAL 0.8 mg/dL (0.2-1.0); CALCIUM 10.7 mg/dL (8.5-10.3); CREATININE 1.3 mg/dL (0.6-1.3); POTASSIUM 4.4 mmol/L (3.5-4.5)
[2023-05-28 13:08] LABS: B. PARAPERTUSSIS- RESP PCR PAN NOT DETECTED; B. PERTUSSIS- RESP PCR PANEL NOT DETECTED; C. PNEUMONIAE- RESP PCR PANEL NOT DETECTED; CORONAVIRUS 229E-RESP PCR NOT DETECTED; CORONAVIRUS HKU1-RESP PCR NOT DETECTED; CORONAVIRUS NL63-RESP PCR NOT DETECTED; CORONAVIRUS OC43-RESP PCR NOT DETECTED; HUMAN METAPNEUMOVIRUS NOT DETECTED; INFLUENZA A- RESP PCR PANEL NOT DETECTED; INFLUENZA B - RESP PCR PANEL NOT DETECTED; M. PNEUMONIAE- RESP PCR PANEL NOT DETECTED; PARAINFLUENZA VIRUS 1 NOT DETECTED; PARAINFLUENZA VIRUS 2 NOT DETECTED; PARAINFLUENZA VIRUS 3 NOT DETECTED; PARAINFLUENZA VIRUS 4 NOT DETECTED; RHINOVIRUS/ENTEROVIRUS NOT DETECTED; RSV- RESP PCR PANEL DETECTED; SARS-CoV-2 -RESP PCR PANEL NOT DETECTED
[2023-05-28] MEDS: FUROSEMIDE 40 MG/4 ML VIAL IVP STA (13:29)
[2023-05-28 13:34] VITALS: BP 157/98; O2SAT 95
--- NOTE | 2023-05-28 13:58 | XRAY Report ---
PROCEDURE: Chest 1V INDICATIONS: dyspnea TECHNIQUE: One view of the chest was acquired. COMPARISON: 03/21/2022 FINDINGS: Surgical changes and devices: None. Lungs and pleura: Diffuse interstitial prominence. Mild perihilar airway thickening. No focal consol idation. Suggestion of mild pulmonary congestion. Mediastinum: Mediastinal contours appear normal. Heart size is enlarged. Bones and chest wall: No suspicious bony lesions. Overlying soft tissues appear unremarkable. IMPRESSION: Cardiomegaly with findings suspicious for pulmonary edema/CHF. Concurrent infectious or inflammatory process not excluded if clinically appropriate. No focal consolidation. Reviewed by: Manuel Dempsey MD on 05/28/2023 1:57 PM PST Approved by: Manuel Dempsey MD on 05/28/2023 1:57 PM PST Station ID: [id number]
== END 2023-05-28 13:41 | disposition home or self-care (01) ==
LOC: EDUNIT# → ED 11:11
DX: I50.9 Heart failure, unspecified (principal); B97.4 Respiratory syncytial virus as the cause of diseases classified elsewhere; I48.91 Unspecified atrial fibrillation; Z79.82 Long term (current) use of aspirin; Z11.52 Encounter for screening for COVID-19
CPT/HCPCS: 36415; 80053; 83880; 85025; 87633; 93005; 96374; 99284